=== PATIENT | female | born 1940 | race Caucasian/White ===

== ENCOUNTER 2025-01-07 18:44 | Inpatient (IN) | payer MEDICARE, SELFPAY ==
--- NOTE | ~2025-01-07 | CT_ITS ---
Non-contrast CT scan of the Abdomen and Pelvis Clinical indication: Abdominal pain Technique: 2.5 mm axial scans were obtained through the abdomen and pelvis without intravenous or or al contrast. Dose reduction technique was used on this scan by utilizing automated exposure control a nd iterative reconstruction technique. The dose-length product (DLP) was 337.19 mGy-cm. Findings: Images through the lung bases reveal 5 mm left basilar pulmonary nodule (axial image 29).. Bilateral ureteral stents are in place. No hydronephrosis or ureteral stone. Suspected 3 mm nonobstru cting right renal stone. Probable punctate nonobstructing left renal stone. The liver, spleen, pancreas, gallbladder, and adrenals appear normal. There are atherosclerotic calci fications of the aorta. . There is no evidence of bowel obstruction. Images through the pelvis were performed. There is no evidence of ascites or lymphadenopathy. Urinary bladder unremarkable aside from the stents present. No pelvic mass seen. Status post hysterectomy. Impression: No acute abnormality. Bilateral ureteral stents without hydronephrosis. Probable small nonobstructing renal stones, as abov e. 5 mm left lower lobe pulmonary nodule. According to Fleischner Society criteria, for a low-risk patie nt, no further follow-up required. For a high-risk patient, consider 12 month follow-up CT. Reviewed, dictated and finalized at location . Impression: No acute abnormality. Bilateral ureteral stents without hydronephrosis. Probable small nonobstructing renal stones, as above. 5 mm left lower lobe pulmonary nodule. According to Fleischner Society criteria , for a low-risk patient, no further follow-up required. For a high-risk patien t, consider 12 month follow-up CT.
--- OUTSIDE RECORDS SUMMARY | 2025-01-07 18:47 | XMS_ITS | Encounter Summary ---
Author Organization [facility] Address [address] [place] [address] Phone Care Team Providers Care Batch Room Technician Name Role Phone RoseAnderson sanchez Primary Care Pro vider Zoe Horton MD Unavailable [phone] Yefri Torres MD Primary Care Provider Encounter Details Date Type Department Care Team (Late st Contact Info) Description 12/01/2024 Telephone [facility] [address] [place] [address] Zoe Horton MD [address] [place] [address] [address] Social History Tobacco Use Types Packs/Day Years Used Date Smoking Tobacco: Never Smokeless Tobacco: Never Alcohol Use Standard Drinks/Week Comments Never 0 (1 standard drink = 0.6 oz pur e alcohol) [facility] Utilities Answer Date Recorded In the past 12 months has [employer], gas, oil, or water company threatened to shut off services in your home? Patient declined 12/02/2024 Social Connection and Isolation Panel [NHANES] A nswer Date Recorded In a typical week, how many times do you talk on the phone with family, friends, or neighbors? Patient declined 12/02/2024 How often do you get togethe r with friends or relatives? Patient declined 12/02/2024 How often do you attend spiritism or jehovah's witness serv ices? Patient declined 12/02/2024 Do you belong to any clubs o r organizations such as spiritism groups, unions, fraternal or athletic groups, or school groups? Patient declined 12/02/2024 How often do you attend meet ings of the clubs or organizations you belong to? Patient declined 12/02/2024 Are you , , di vorced, , never , or living with a partner? Patient declined 12/02/2024 AUDIT-C Answer Date Recorded Q1: How often do you have a drink containing alc ohol? Patient declined 12/02/2024 Q2: How many drinks containi ng alcohol do you have on a typical day when you are drinking? Patient declined 12/02/2024 Q3: How often do you have si x or more drinks on one occasion? Patient declined 12/02/2024 Overall Financial Resource Strain (CARDIA) Answe r Date Recorded How hard is it for you to pa y for the very basics like food, housing, medical care, and heating? Patient declined 12/02/2024 [facility] - Occupational Stress Questionnaire Answer Date Recorded Do you feel stress - tense, restless, nervous, or anxious, or unable to sleep at night because your mind is troubled all the time - these days? Patient declined 12/02/2024 Exercise Vital Sign Answer Date Recorde d On average, how many days pe r week do you engage in moderate to strenuous exercise (like a brisk walk)? Patient declined On average, how many minutes do you engage in exercise at this level? Patient declined 12/02/2024 Hunger Vital Sign Answer Date Recorded Within the past 12 months, y ou worried that your food would run out before you got the money to buy more. Patient declined Within the past 12 months, t he food you bought just didn't last and you didn't have money to get more. Patient declined 09/2025 PRAPARE - Transportation Answer Date Re corded In the past 12 months, has l ack of transportation kept you from medical appointments or from getting medications? Patient declined 12/02/2024 In the past 12 months, has l ack of transportation kept you from meetings, work, or from getting things needed for daily living? Patient declined 12/02/2024 Housing Stability Vital Sign Answer Vasquez e Recorded In the last 12 months, was t here a time when you were not able to pay the mortgage or rent on time? Patient declined 12/02/19 25 In the past 12 months, how m any times have you moved where you were living? 1 12/02/2024 At any time in the past [facility] m [facility], were you homeless or living in a jail (including now)? Patient declined 12/02/2024 Sexually Active Control Partners Comments Not Currently Comments No Sex and Gender Information Value Date Recorded Sex Assigned at Not on file Legal Sex Female 6:48 PM CDT Gender Identity Not on file Sexual Orientation Not on file documented as of this encounter Functional Status * Audit-C Score Answer Date of Assessment Author -1 12/02/2024 4:57 PM Dotty Chang RN * Question Answer Date of Assessment Author Q1: How often do you have a drink containing alcohol? Patient declined 12/02/2024 4:57 PM Dotty Chang RN Q2: How many drinks containing alcohol do you have on a typical day when you are drinking? Patient declined 12/02/2024 4:57 PM Alejandro Chang RN Q3: How often do you have six or more drinks on one occasion? Patient declined 12/02/2024 4:57 PM Dotty Chang RN documented as of this encounter Miscellaneous Notes * Telephone Encounter - Stephie Schwab RMA - 12/03/2024 9:18 AM CST Spoke with Lucero's daughter. Lucero is still admitted. She will call and schedule her CT and then callus back to schedule the cysto. ESS DESIGNER * Telephone Encounter - Zoe Horton MD - 12/01/2024 3:[address] in 7-10 days, cysto stent pull in [address] prior to cysto appt ESS DESIGNER documented in this encounter Plan of Treatment Upcoming Encounters Date Type Department Care Team (Latest Contact Info) Description 02/09/2025 12:10 PM CDT Hospital [facility] [address] [place] [address] Zoe Horton MD #[address] [address] 02/09/2025 12:10 PM CDT - 02/09/2025 1:40 PM CDT [facility] [address] [place] [address] Zoe Horton MD #[address] [address] RIGHT EXTRACORPOREAL SHOCKWAVE LITHOTRIPSY, [facility] 02/09 AT 1200 - JS Scheduled Procedures Name Priority Associated Diagnoses Date/Ti me ESWL BILATERAL NEPHROLITHIASIS 02/09/2025 12:10 PM CDT documented as of this encounter Visit Diagnoses Not on filedocumented in this encounter Care Teams Batch Room Technician Relationship Specialty Start Date End Date Anderson Valencia DO [address] [place] [id number] PCP - General Family Medicine 12/31/19 12/24/24 Yefri Torres MD [address] [place] [address] PCP - General Family Medicine 12/25/24 Zoe Horton MD #[address] [address] Consulting Physician Urology 11/03/24 documented as of this encounter
--- OUTSIDE RECORDS SUMMARY | 2025-01-07 18:47 | XMS_ITS | Continuity of Care Document ---
Author Organization [facility] Address [address] [place] [address] Phone Care Team Providers Care Cargo Worker Name Role Phone Troy Garcia MD Unavailable Unavailable Allergies, Adverse Reactions, Alerts Substance Reaction Status Criticality Sulfa (Sulfonamide Antibiotics) Unknown Active Unable to Assess codeine Unknown Active Unable to Asses s Medications Medication Instructions Dosage Effective Dates (start - stop) Status Comments prednisolone acetate 1 % eye drops,suspension 1 gt to operative eye QID 2 days pre-op and 7 days post-op then decrease to BID for 5 wks after surgery. Disp 10 ml - Active ketorolac 0.5 % eye drops instill 1 drop in operative eye QID for 9 days starting 2 days prior to surgery Disp 5ml - Active ofloxacin 0.3 % eye drops instill i gt to operative eye QID x 9 days starting 2 days before surgery Disp 5ml - Active Afrin Sinus (oxymetazoline) 0.05 % nasal spray spray 2 spray by intranasal route 2 times every day in each nostril in the morning and evening 2.00 spray - Active albuterol sulfate HFA 90 mcg/actuation aerosol inhaler inhale 2 puff by inhalation route every 4 - 6 hours as needed - Active aspirin 81 mg chewable tablet chew 1 tablet by oral route every day 81 MG - Active Calcium 600 mg calcium (1,500 mg) tablet take 1 tablet by oral route every day 1 tablet - Active Flovent HFA 220 mcg/actuation aerosol inhaler inhale 1 puff by inhalation route 2 times every day - Active metformin 500 mg tablet take 1 tablet by oral route every day with morning and evening meals 500 MG - Active Procardia XL 60 mg tablet,extended release take 1 tablet by oral route every day 60 MG - Active Toprol XL 25 mg tablet,extended release take 1 tablet by oral route every day 25 MG - Active Trilipix 135 mg capsule,delayed release take 1 capsule by oral route every day 135 MG - Active Vicks VapoInhaler nasal - Active Vitamin B-12 50 mcg tablet inject 1 milliliter by intramuscular route 2 times every month 1 milliliter - Active Vitamin C With [place] Hips 500 mg tablet take 1 tablet by oral route every day 1 tablet - Active Vitamin D3 10 mcg (400 unit) tablet - Active Zetia 10 mg tablet take 1 tablet by oral route every day 10 MG - Active Procedures Procedure Date CATARACT SURG W/IOL, SURGERY IOL MASTER, PROF COMP ONLY CATARACT SURG W/IOL, SURGERY EYE EXAM, NEW PATIENT IOL MASTER FUNDUS PHOTOGRAPHY Post Operative Kit / Medical Supply By P rescription Advance Directives Directive Yes / No Effective Date File Name No Information Encounters Encounter Description Practice Location Reason(s) For Visit Diagnoses Date Provider Providers Copied on Encounter [facility], [facility], [address] [place] [address], [id number] , [place] tel:[phone] [facility] No Information 2 Jose Simmons. [address] [place] [address], [id number] , [place]. tel:[phone] Referring Provider: Troy Stevenson, [address] [place] [address], [id number] . tel:[phone] [facility], [facility], [address] [place] [address], [id number] , [place] tel: [phone] [facility] No Information 2 Jose Simmons. [address] [place] [address], [id number] , . tel: [phone] Referring Provider: Troy Stevenson, [address] [place] [address], [id number] . tel:[phone] [facility], [facility], [address] [place] [address], [id number] , tel:[phone] [facility] No Information 2 Jose Simmons. [address] [place] [address], [id number] , [place]. tel: [phone] Referring Provider: Troy Stevenson, [address] [place] [address], [id number] . tel:[phone] [facility], [address] [place] [address], [id number] , tel: [phone] [facility] blurry vision (chief complaint)OPT OS prior to RML hypertensive retinopathy (chief complaint)hemant rry vision (chief complaint)OPT OS prior to RML hypertensive retinopathy (chief complaint) Hypertensive retinopathy, bilateralCombin ed forms of age-related cataract, bilateralDrusen (degenerative) of macula, bilateralType 2 diabetes mellitus without complicationsLo ng term (current) use of oral hypoglycemic drugsRegular astigmatism, bilateralPresby opiaRefractive amblyopia, left eye Apr-0 2 Jose Simmons. [address] [place] [address], [id number] , [place]. tel: [phone] Referring Provider: Troy Stevenson, [address] [place] [address], [id number] . tel:[phone] [facility], [facility], [address] [place] [address], [id number] , tel:[phone] [facility] No Information 2 Jose Simmons. [address] [place] [address], [id number] , [place]. tel: [phone] Family History Family Member Type Diagnosis Age At Onset Sister Problem hypertension Mother Problem hypertension Sister Problem cataract Problem No family history of Glaucom a Problem No family history of Diabete s mellitus Problem No family history of Macular degeneration Payers Payer name Insurance type Covered green party ID Authoriza tierich(s) Medicare [place] MB [id number] APWU HP Secondary CI [id number] Social History Type Description Quantity Date Captured Comments Alcohol Use Details Unknown Caffeine Use Details Unknown Tobacco Use Status No Information Smoking Status No Information Sex Female Chief Complaint And Reason For Visit No Information Reason For Referral Reason For Referral No Information History Of Present Illness Encounter Date Complaint History Of Prese nt Illness blurry vision The 81 Year old female presents for a referral by Dr. De Guzman for a CAT EVAL. Pt reports blurry vision in the right > left since last exam with Dr. De Guzman. It affects both near and far vision. The patient denies COVID-19 symptoms - temperature normal. No eye meds OU. Pt does have difficulty with sun/glarePt is a Type II Diabetic, treating with oral meds. Pt does not check BS and does not know what her last A1C was. Please send letter to PCP about today's findings. OPTOS prior to RML h ypertensive retinopathy NOTE: OPTOS prior to RML hypertensive retinopathy Functional Status Date Functional Assessmen t No Information Instructions Date Instruction Additional Infor kim Impression/Plan Assessments Type Assessment Date No Information Patient Care Teams Name Effective Dates (start - stop) Status Members No Information
--- OUTSIDE RECORDS SUMMARY | 2025-01-07 18:48 | XMS_ITS | Clinical Summary ---
Author Organization [facility] Address [address] [place] [address] Phone Care Team Providers Care Erector Operator Name Role Phone Zoe Horton MD Unavailable [phone] Yefri Torres MD Primary Care Provider Allergies Active Allergy Reactions Criticality Noted Date Comments Codeine Unknown 10/06/2024 Colesevelam Unknown 10/06/2024 Ezetimibe Unknown 10/06/2024 Ezetimibe-Simvastatin Unknown 10/06/2024 Iodine Unknown 10/06/2024 Meperidine Unknown 10/06/2024 Scopolamine Unknown 10/06/2024 Sulfa Antibiotics Unknown 10/06/2024 Medications aspirin 81 MG Chewable Tablet Take 81 mg by mouth daily. Active Choline Fenofibrate 135 MG CAPSULE DELAYED RELEASE Take 1 Capsule by mouth nightly. Active Diclofenac Sodium (Voltaren) 1 % Gel Apply 4 g 4 times daily. Active metoprolol Succinate (TOPROL-XL) 25 MG TABLET SR 24 HR Take 25 mg by mouth daily. Active NIFEdipine (Procardia XL) 60 MG TABLET SR 24 HR Take 60 mg by mouth daily. Active pravastatin (PRAVACHOL) 20 MG Tablet Take 20 mg by mouth nightly. Active Albuterol Sulfate, sensor, (ProAir Digihaler) 108 (90 Base) MCG/ACT AEROSOL POWDER, BREATH ACTIVATED take 2 Inhalations by inhalation every 4 hours as needed. Active triamterene-hyd rochlorothiazid e (Dyazide) 37.5-25 MG Capsule Take 1 Capsule by mouth every morning. Active metFORMIN (GLUCOPHAGE) 500 MG Tablet Take 0.5 Tablets by mouth daily for 90 days. 45 Tablet 4 01/08/20 25 Active Multiple Vitamins-Minera ls (CENTRUM SILVER ADULT 50+ PO) Take 1 Tablet by mouth daily. Active Bioflavonoid Products (BIOFLEX PO) Take 1 Tablet by mouth daily. Active OMEPRAZOLE PO Take 1 Tablet by mouth daily as needed. Active acetaminophen (TYLENOL) 325 MG Tablet Take 650 mg by mouth every 4 hours as needed for Other (Arthritis). Active HYDROcodone-abhay taminophen (NORCO) 10-325 MG TabletIndicatio ns:Kidney stone Take 1 Tablet by mouth every 6 hours as needed for Moderate or more severe pain. 10 Tablet 5 Active levoFLOXacin (LEVAQUIN) 500 MG Tablet Take 1 Tablet by mouth daily for 7 days. 7 Tablet 5 12/11/19 25 Active Problems Problem Noted Date Diagnosed Date Postoperative fever 12/02/2024 Postoperative nausea and vomiting 12/02/2024 Dehydration 12/02/2024 Hypokalemia 12/02/2024 Kidney stones 12/01/2024 EUGENIE (acute kidney injury) 10/06/2024 Microcytic anemia 10/06/2024 Diabetes mellitus type 2 in nonobese 10/06/2024 Vitamin D deficiency 10/06/2024 Hyperlipidemia 10/06/2024 Hypertension 10/06/2024 Resolved Problems Problem Noted Date Diagnosed Date Resolved Date Sepsis 10/06/2024 10/09/2024 Obstructive pyelonephritis 10/06/2024 1 12/10/2023 Encounters Date Type Department Care Team Description 12/31/2024 Telephone [facility] [place] [address] Zoe Horton MD 12/25/2024 11:30 AM RN ANESTHESIOLOGY Office Visit [facility] [place] [address] Zoe Horton MD UTI symptoms (Primary Dx) Discharge Disposition: Discharged to home or Selfcare 12/23/2024 Travel 12/15/2024 6:14 PM RN ANESTHESIOLOGY - 12/15/2024 11:59 PM RN ANESTHESIOLOGY Hospital Encounter [facility] [address] [place] [address] Zoe Horton MD Discharge Disposition: Discharged to home or Selfcare 12/14/2024 Travel 12/03/2024 Telephone [facility] [place] [address] Nilo Man, BLOW DOWN HELPER, CONTINUOUS LINTER DRIER OPERATOR Erroneous Encounter - Disregard 12/01/2024 1:51 PM RN ANESTHESIOLOGY Anesthesia Event [facility] [address] [place] [address] Rudy Chavarria MD 12/01/2024 1:10 PM RN ANESTHESIOLOGY - 12/01/2024 2:40 PM RN ANESTHESIOLOGY Surgery [facility] [address] [place] [address] Zoe Horton MD BILATERAL URETEROSCOPY AND BASKET STONE EXTRACTION 12/01/2024 10:53 AM RN ANESTHESIOLOGY - 12/04/2024 4:30 PM RN ANESTHESIOLOGY Hospital Encounter [facility] [address] [place] [address] Zoe Horton MD Dianati, Behfar, MD Carmicheal, Crystal Marie, MD EUGENIE (acute kidney injury) (HCC) Discharge Disposition: Discharged/Transferr ed to Rehab Facility (IRF)/Unit 12/01/2024 Telephone [facility] [place] [address] Zoe Horton MD 12/01/2024 Travel 11/17/2024 Travel 11/16/2024 Telephone [facility] [address] [place] [address] Zoe Horton MD 11/11/2024 Results Follow-Up [facility] [address] [place] [address] Zoe Horton MD 11/09/2024 12:19 PM RN ANESTHESIOLOGY - 11/09/2024 11:59 PM RN ANESTHESIOLOGY Hospital En[facility] [address] [place] [address] Provider, Not On File Discharge Disposition: Discharged to home or Selfcare 11/09/2024 11:00 AM RN ANESTHESIOLOGY Clinical Support [facility] [address] [place] [address] Handy Parson Urologandrea UTI symptoms Discharge Disposition: Discharged to home or Selfcare 11/08/2024 Travel 11/05/2024 Telephone [facility] [address] [place] [address] Zoe Horton MD 2024 2:00 PM RN ANESTHESIOLOGY Clinical Support [facility] [address] [place] [address] Handy Parson Urology UTI symptoms (Primary Dx) Discharge Disposition: Discharged to home or Selfcare 11/03/2024 Travel 10/30/2024 1:00 PM RN ANESTHESIOLOGY Office Visit [facility] [address] [place] [address] Zoe Horton MD UTI symptoms (Primary Dx) Discharge Disposition: Discharged to home or Selfcare 10/29/2024 Travel 10/05/2024 10:52 AM RN ANESTHESIOLOGY - 10/09/2024 12:56 PM RN ANESTHESIOLOGY Hospital Encounter [facility] [address] [facility] [place] [address] Bebe Nelson MD Dianati, Behfar, MD Sepsis ([facility]) Discharge Disposition: Discharged/Transferr ed to Rehab Facility (IRF)/Unit from Last 3 Months Immunizations Immunization Administration Dates Next Due Influenza Vaccine,unspecified Formulation 2015,09/30/2014 Influenza, High-dose, Quadrivalent 08/19/2023,,06/26/2020 Influenza, high-dose, trivalent, PF 10/06/2019,1 ,07/02/2017 Pneumococcal Vaccine - 13 Valent 12/23/2017 Pneumococcal Vaccine Adult - 23 Valent 9 RSV, Recombinant, Protein Dee bunit Rsvpref, Adjuvant Recon (Arexvy) 09/04/2023 TDAP Vaccine 04/20/2021 Family History Medical History Relation Name Comments No Known Problems Father Heart Attack Mother Relation Name Status Comments Father Mother Social History Tobacco Use Types Packs/Day Years Used Date Smoking Tobacco: Never Smokeless Tobacco: Never Tobacco Cessation:Counseling Given: Not Answered Alcohol Use Standard Drinks/Week Comments Never 0 (1 standard drink = 0.6 oz pur e alcohol) [facility] Utilities Answer Date Recorded In the past 12 months has e electric, gas, oil, or water [employer] threatened to shut off services in your home? Patient declined 12/02/2024 Social Connection and Isolation Panel [NHANES] A nswer Date Recorded In a typical week, how many times do you talk on the phone with family, friends, or neighbors? Patient declined 12/02/2024 How often do you get togethe r with friends or relatives? Patient declined 12/02/2024 How often do you attend jainism or latter day serv ices? Patient declined 12/02/2024 Do you belong to any clubs o r organizations such as jainism groups, unions, fraternal or athletic groups, or [...] medical care, and heating? Patient declined 12/02/2024 [facility] [...] any time in the past 12 m [facility], were you homeless or living in a alf (including now)? Patient declined 12/02/2024 Sexually Active Control Partners Comments Not Currently Comments No Sex and Gender Information Value Date Recorded Sex Assigned at Not on file Legal Sex Female 6:48 PM CDT Gender Identity Not on file Sexual Orientation Not on file Last Filed Vital Signs Vital Sign Reading Time Taken Comments Blood Pressure 150/65 12/25/2024 11:23 AM RN ANESTHESIOLOGY Pulse 75 12/25/2024 11:23 AM RN ANESTHESIOLOGY Temperature 36.3 C (97.3 F) 12/04/2024 3:43 PM RN ANESTHESIOLOGY Respiratory Rate 16 12/25/2024 11:23 AM RN ANESTHESIOLOGY Oxygen Saturation 96% 12/25/2024 11:23 AM RN ANESTHESIOLOGY Inhaled Oxygen Concentration - - Weight 57.4 kg (126 lb 9.6 oz) 12/25/2024 11:23 AM RN ANESTHESIOLOGY Height 160 cm (5' 3 ) 12/25/2024 11:23 AM RN ANESTHESIOLOGY Body Mass Index 22.43 12/25/2024 11:23 AM RN ANESTHESIOLOGY Plan of Treatment Upcoming Encounters Date Type Department Care Team (Latest Contact Info) Description 02/09/2025 12:10 PM CDT Hospital [facility]counter [facility] [address] [place] [address] Zoe Horton MD #[address] [address] 02/09/2025 12:10 PM CDT - 02/09/2025 1:40 PM CDT Surgery [facility] [address] [place] [address] Zoe Horton MD #[address] [address] RIGHT EXTRACORPOREAL SHOCKWAVE LITHOTRIPSY, ALFREDA/MIDWEST STONE CONF FOR 02/09 AT 1200 - JS Scheduled Procedures Name Priority Associated Diagnoses Date/Ti me ESWL BILATERAL NEPHROLITHIASIS 02/09/2025 12:10 PM CDT Health Maintenance Due Date Last Done Comments Diabetes: Eye Exam 1940 Diabetes: Foot Exam 1940 Hepatitis C Virus (HCV) Screening 1940 Zoster Immunization (1 of 2) 1988 DEXA Bone Density 06/01/2023 06/01/2021 Influenza Immunization (#1) 06/21/202407/23, 08/10/2022, 06/26/2020, Additional history exists SARS-COV-2 Immunization ( season) 2024 07/25/2023, 08/28/2022, 09/06/2021, Additional history exists Diabetes: Hemoglobin A1c 04/08/2025 10/08/2024, 05/21 Diabetes: Nephropathy Screening 12/01/2025 12/01/2024, 10/06/2024 Td Immunization Every 10 Years (Adults With 1 Tdap) 04/20/2031 04/20/2021 Pneumococcal Immunization (50+ years) Completed 01/21/2019, 12/23/2017 Pneumococcal Immunization Combined Discontinued 01/21/2019, 12/23/2017 DTaP/Tdap/Td Immunization Discontinued 04/20/2021 TdaP Immunization Discontinued 04/20/2021 Respiratory Syncytial Virus (RSV) Immunization (Adult) Completed 09/04/2023 Hepatitis B Immunization Aged Out No longer eligible based on patient's age to complete this topic Meningococcal Immunization (ACWY) Aged Out No longer eligible based on patient's age to complete this topic Rotavirus Immunization Aged Out No lo nger eligible based on patient's age to complete this topic Medical Devices Implanted Type Area Water Inspector Device Identifier Shelf Expiration Date Model / Serial / Lot Stent Ureteral 6fr 2.1fr 24cm 2 Pigtail Curve 2 Durometer Taper Tip Loprfl Graduated Polaris Ultra - [id number] Implanted:Qty : 1 on 12/01/2024 by Zoe Horton MD at [facility] IMPLANT Right: Ureter [employer]a 07/14/2027 [id number] 0 / [id number] 0 / [id number] Description:STRINGS OFF Stent Ureteral 6fr 2.1fr 24cm 2 Pigtail Curve 2 Durometer Taper Tip Loprfl Graduated Polaris Ultra - [id number] Implanted:Qty : 1 on 12/01/2024 by Zoe Horton MD at [facility] IMPLANT Left: Ureter [employer] 03/11/2027 [id number] 0 / [id number] 0 / [id number] Explanted Type Area Water Inspector Device Identifier Shelf Expiration Date Model / Serial / Lot Stent Ureteral 6fr 2.1fr 26cm 2 Pigtail Curve 2 Durometer Taper Tip Loprfl Graduated Polaris Ultra - [id number] Implanted:Qty : 1 on 10/06/2024 by Zoe Horton MD at [facility] Explanted:Qty : 1 on 12/01/2024 by Zoe Horton MD at [facility] IMPLANT Right: Ureter [employer] 03/11/2027 [id number] 0 / [id number] 0 / [id number] Description:STRINGS OFF Procedures Procedure Name Priority Date/Time Associated Diagnosis Comments CULTURE, URINE Routine 12/25/2024 11:49 AM RN ANESTHESIOLOGY UTI symptoms CT RENAL STONE STUDY (ABDOMEN AND PELVIS W/O CONTRAST) Routine 12/15/2024 6:28 PM RN ANESTHESIOLOGY Kidney stone POCT GLUCOSE Routine 12/04/2024 1:04 PM RN ANESTHESIOLOGY POCT GLUCOSE Routine 12/04/2024 10:11 AM RN ANESTHESIOLOGY CBC WITH AUTO DIFFERENTIAL Routine 12/04/2024 5:51 AM RN ANESTHESIOLOGY COMPLETE BLOOD COUNT (CBC) WITH DIFF Routine 12/04/2024 5:51 AM RN ANESTHESIOLOGY BASIC METABOLIC PANEL W/ CALCIUM TOTAL Routine 12/04/2024 5:51 AM RN ANESTHESIOLOGY POCT GLUCOSE Routine 12/03/2024 7:59 PM RN ANESTHESIOLOGY POCT GLUCOSE Routine 12/03/2024 3:41 PM RN ANESTHESIOLOGY POCT GLUCOSE Routine 12/03/2024 11:33 AM RN ANESTHESIOLOGY POCT GLUCOSE Routine 12/03/2024 6:49 AM RN ANESTHESIOLOGY CBC WITH AUTO DIFFERENTIAL Routine 12/03/2024 6:05 AM RN ANESTHESIOLOGY COMPLETE BLOOD COUNT (CBC) WITH DIFF Routine 12/03/2024 6:05 AM RN ANESTHESIOLOGY BASIC METABOLIC PANEL W/ CALCIUM TOTAL Routine 12/03/2024 6:05 AM RN ANESTHESIOLOGY RHYTHM STRIP 12/03/2024 12:00 AM RN ANESTHESIOLOGY RHYTHM STRIP 12/03/2024 12:00 AM RN ANESTHESIOLOGY POCT GLUCOSE Routine 12/02/2024 8:07 PM RN ANESTHESIOLOGY POCT GLUCOSE Routine 12/02/2024 4:42 PM RN ANESTHESIOLOGY URINALYSIS REFLEX IF INDICATED BY ABNORMAL RESULTS Routine 12/02/2024 3:00 PM RN ANESTHESIOLOGY CULTURE, URINE Routine 12/02/2024 3:00 PM RN ANESTHESIOLOGY POCT GLUCOSE Routine 12/02/2024 11:07 AM RN ANESTHESIOLOGY POCT GLUCOSE Routine 12/02/2024 7:41 AM RN ANESTHESIOLOGY CBC WITH AUTO DIFFERENTIAL Routine 12/02/2024 5:18 AM RN ANESTHESIOLOGY COMPLETE BLOOD COUNT (CBC) WITH DIFF Routine 12/02/2024 5:18 AM RN ANESTHESIOLOGY BASIC METABOLIC PANEL W/ CALCIUM TOTAL Routine 12/02/2024 5:18 AM RN ANESTHESIOLOGY XR CHEST SINGLE VIEW PORTABLE Routine 12/02/2024 2:47 AM RN ANESTHESIOLOGY POCT GLUCOSE Routine 12/02/2024 1:11 AM RN ANESTHESIOLOGY RHYTHM STRIP 12/02/2024 12:00 AM RN ANESTHESIOLOGY RHYTHM STRIP 12/02/2024 12:00 AM RN ANESTHESIOLOGY RHYTHM STRIP 12/02/2024 12:00 AM RN ANESTHESIOLOGY MANUAL DIFFERENTIAL Routine 12/01/2024 9 :37 PM RN ANESTHESIOLOGY CBC WITH AUTO DIFFERENTIAL Routine 12/01/2024 9:37 PM RN ANESTHESIOLOGY CMP (COMPREHENSIVE METABOLIC PANEL) Routine 12/01/2024 9:37 PM RN ANESTHESIOLOGY COMPLETE BLOOD COUNT (CBC) WITH DIFF Routine 12/01/2024 9:37 PM RN ANESTHESIOLOGY POCT GLUCOSE Routine 12/01/2024 8:52 PM RN ANESTHESIOLOGY POCT GLUCOSE Routine 12/01/2024 5:57 PM RN ANESTHESIOLOGY XR RETROGRADE PYELOGRAM Routine 12/01/2024 3:03 PM RN ANESTHESIOLOGY POCT GLUCOSE Routine 12/01/2024 3:00 PM RN ANESTHESIOLOGY PATHOLOGY SURGICAL Routine 12/01/2024 2: 10 PM RN ANESTHESIOLOGY LMA Routine 12/01/2024 2:05 PM RN ANESTHESIOLOGY CYSTOSCOPY,INSERT URETERAL STENT 12/01/2024 1:31 PM RN ANESTHESIOLOGY BILATERAL NEPHROLITHIASIS Special Needs Allergy: Many- see EPIC Hx: Diabetes, HTN 5' 3 126# CYSTOSCOPY,REMV CALCULUS,SIMPLE 12/01/2024 1:31 PM RN ANESTHESIOLOGY BILATERAL NEPHROLITHIASIS Special Needs Allergy: Many- see EPIC Hx: Diabetes, HTN 5' 3 126# DIAG-RETROGRADE PYELOGRAM 12/01/2024 1:31 PM RN ANESTHESIOLOGY BILATERAL NEPHROLITHIASIS Special Needs Allergy: Many- see EPIC Hx: Diabetes, HTN 5' 3 126# CYSTOURETHROSCOPY,U RETER CATHETER 12/01/2024 1:31 PM RN ANESTHESIOLOGY BILATERAL NEPHROLITHIASIS Special Needs Allergy: Many- see EPIC Hx: Diabetes, HTN 5' 3 126# CYSTO/URETERO W/LITHOTRIPSY 12/01/2024 1:31 PM RN ANESTHESIOLOGY BILATERAL NEPHROLITHIASIS Special Needs Allergy: Many- see EPIC Hx: Diabetes, HTN 5' 3 126# CYSTOSCOPY,INSERT URETERAL STENT 12/01/2024 1:31 PM RN ANESTHESIOLOGY BILATERAL NEPHROLITHIASIS Special Needs Allergy: Many- see EPIC Hx: Diabetes, HTN 5' 3 126# CYSTOSCOPY,INSERT URETHRAL STENT 12/01/2024 1:31 PM RN ANESTHESIOLOGY BILATERAL NEPHROLITHIASIS Special Needs Allergy: Many- see EPIC Hx: Diabetes, HTN 5' 3 126# CYSTO/URETERO/PYELO SCOPY, DX 12/01/2024 1:31 PM RN ANESTHESIOLOGY BILATERAL NEPHROLITHIASIS Special Needs Allergy: Many- see EPIC Hx: Diabetes, HTN 5' 3 126# CYSTOURETHROSCOPY,U RETER CATHETER 12/01/2024 1:31 PM RN ANESTHESIOLOGY BILATERAL NEPHROLITHIASIS Special Needs Allergy: Many- see EPIC Hx: Diabetes, HTN 5' 3 126# POCT GLUCOSE Routine 12/01/2024 11:[address] REFERENCE IMAGES FOR IMAGE IMPORT Routine 11/09/2024 12:19 PM RN ANESTHESIOLOGY CULTURE, URINE Routine 11/09/2024 10:49 AM RN ANESTHESIOLOGY UTI symptoms CULTURE, URINE Routine 2024 2:13 PM RN ANESTHESIOLOGY UTI symptoms CULTURE, URINE Routine 10/30/2024 1:10 PM RN ANESTHESIOLOGY UTI symptoms CBC WITH AUTO DIFFERENTIAL Routine 10/09/2024 5:41 AM RN ANESTHESIOLOGY BASIC METABOLIC PANEL W/ CALCIUM TOTAL Routine 10/09/2024 5:41 AM RN ANESTHESIOLOGY COMPLETE BLOOD COUNT (CBC) WITH DIFF Routine 10/09/2024 5:41 AM RN ANESTHESIOLOGY HEMOGLOBIN A1C W/ ESTIMATED GLUCOSE Routine 10/08/2024 5:55 AM RN ANESTHESIOLOGY from Last 3 Months or Most Recently Relevant to Health Maintenance Results * CULTURE, URINE (12/25/2024 11:49 AM RN ANESTHESIOLOGY) Only the most recent of5 resultswithin the time period is included. CULTURE RESULTS No growth final 12/26/2024 9:15 PM RN ANESTHESIOLOGY [facility] Culture (Straight Catheter) Non-Phlebotomy Collection / Unknown 12/25/2024 11:49 AM RN ANESTHESIOLOGY 12/25/2024 11:49 AM RN ANESTHESIOLOGY us Zoe Lancaster MD MICROBIOLOGY - GENERAL ORDERAB LES Final Result [facility] [address] [place] [address], [place] * CT RENAL STONE STUDY (ABDOMEN AND PELVIS W/O CONTRAST) (12/15/2024 6:28 PM RN ANESTHESIOLOGY) Anatomical Region Laterality Modality Abdomen N/A Computed Tomogra phy 12/20/2024 8:40 AM RN ANESTHESIOLOGY Impressions 12/20/2024 8:43 AM RN ANESTHESIOLOGY IMPRESSION: Bilateral double-J ureteral stents in place. No hydronephrosis. 5 mm stone adjacent to the proximal aspect of the right ureteral stent. No other stone along the course of the stent. Nonobstructing 2 mm calculus at the lower pole of the right kidney. Urinary bladder decompressed, accentuating wall thickness. Increased stool burden within the colon. Diverticulosis. Pulmonary nodules within the lung bases, stable compared to recent examination on 10/05/2024. CT of the chest without contrast is recommended for further evaluation. Per Fleischner Society Guidelines, follow-up CT of the complete chest after an appropriate interval (3 to 12 months depending on clinical risk) to confirm stability and to evaluate additional findings. Additional findings as above. Narrative 12/20/2024 8:43 AM RN ANESTHESIOLOGY EXAM DESCRIPTION: CT RENAL STONE STUDY (ABDOMEN AND PELVIS W/O CONTRAST) REASON FOR STUDY: follow up bilateral kidney stones x 2 months[address] TECHNIQUE: CT scan of the abdomen and pelvis performed without intravenous and without oral contrast using helical scanning technique. Reconstructed coronal and sagittal MPR images reviewed. All images stored on PACS. Automated exposure control was used as a dose optimization technique for this examination. COMPARISON: Retrograde pyelogram 12/01/2024 and 10/06/2024. CT 10/05/2024 FINDINGS: The sensitivity for detection of visceral lesions is diminished without the use of intravenous contrast. LOWER CHEST: There is no consolidation within either lung base. There is a 6 mm nodule within the left lower lobe on image number 2 of the study, stable compared to recent examination on 10/05/2024. 3 mm nodule in the posterolateral right lower lobe on image 12 is also stable. Atherosclerotic calcification of the distal thoracic aorta. Coronary artery calcification. No pleural or pericardial effusion. LIVER: The liver is normal in size. There is no discrete hepatic mass within the limitations of this noncontrast study. GALLBLADDER: Gallbladder is mildly distended, similar to the prior study. No calcified stones or inflammatory process. BILE DUCTS: No intrahepatic or extrahepatic ductal dilatation. SPLEEN: Normal size. No focal lesions. PANCREAS: No peripancreatic inflammatory process or fluid collection. Evaluation for pancreatic mass limited on noncontrast imaging. ADRENALS: Unremarkable. KIDNEYS/URINARY TRACT: Right kidney: There is a ureteral stent in place. Proximal aspect is coiled within the renal pelvis. There is no hydronephrosis. There is mild urothelial thickening of the renal pelvis, with slight peripelvic stranding. There is a nonobstructing 2 mm calculus at the lower pole of the right kidney. There is a stone adjacent to the proximal aspect of the right ureteral stent as visualized on axial image number 72 and coronal image number 47, measuring 5 mm in craniocaudal on coronal series. There is no other appreciable calculus along the right ureteral stent. Left kidney: There is a double-J ureteral stent. The proximal aspect is coiled within the collecting system of the upper/interpolar aspect of the left kidney. There is no hydronephrosis. No definite stone along the path of the left ureteral stent. The urinary bladder is decompressed, accentuating wall thickness. Distal aspects of the ureteral stents are coiled within the bladder lumen GI: There is decompression of the stomach. Small bowel loops are normal in caliber. No wall thickening or evidence of obstruction. The appendix is normal. There is increased stool burden demonstrated within the colon. There is diverticulosis, without diverticulitis. PERITONEUM: There is no free intraperitoneal air. There is no free fluid. There is no mesenteric adenopathy. RETROPERITONEUM: There are a few scattered subcentimeter short axis retroperitoneal nodes. REPRODUCTIVE: No significant abnormality. VASCULATURE: The abdominal aorta is atherosclerotic, without aneurysm MUSCULOSKELETAL: There is grade 1 anterolisthesis at L3-4, L4-5 and to a lesser degree L5-S1. 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 OTHER: No other abnormality. THIS IS AN ELECTRONICALLY VERIFIED FINAL REPORT 12/20/2024 8:40 AM - Electronically signed by Debi Perez M.D. TW: TW Report ID: [id number] Reading Location: [id number] Procedure Note Debi Perez MD - 12/20/2024 EXAM DESCRIPTION: CT RENAL STONE STUDY (ABDOMEN AND PELVIS W/O CONTRAST) REASON FOR STUDY: follow up bilateral kidney stones x 2 months[address] TECHNIQUE: CT scan of the abdomen and pelvis performed without intravenous and without oral contrast using helical scanning technique. Reconstructed coronal and sagittal MPR images reviewed. All images stored on PACS. Automated exposure control was used as a dose optimization technique for this examination. COMPARISON: Retrograde pyelogram 12/01/2024 and 10/06/2024. CT 10/05/2024 FINDINGS: The sensitivity for detection of visceral lesions is diminished without the use of intravenous contrast. LOWER CHEST: There is no consolidation within either lung base. There is a 6 mm nodule within the left lower lobe on image number 2 of the study, stable compared to recent examination on 10/05/2024. 3 mm nodule in the posterolateral right lower lobe on image 12 is also stable. Atherosclerotic calcification of the distal thoracic aorta. Coronary artery calcification. No pleural or pericardial effusion. LIVER: The liver is normal in size. There is no discrete hepatic mass within the limitations of this noncontrast study. GALLBLADDER: Gallbladder is mildly distended, similar to the prior study. No calcified stones or inflammatory process. BILE DUCTS: No intrahepatic or extrahepatic ductal dilatation. SPLEEN: Normal size. No focal lesions. PANCREAS: No peripancreatic inflammatory process or fluid collection. Evaluation for pancreatic mass limited on noncontrast imaging. ADRENALS: Unremarkable. KIDNEYS/URINARY TRACT: Right kidney: There is a ureteral stent in place. Proximal aspect is coiled within the renal pelvis. There is no hydronephrosis. There is mild urothelial thickening of the renal pelvis, with slight peripelvic stranding. There is a nonobstructing 2 mm calculus at the lower pole of the right kidney. There is a stone adjacent to the proximal aspect of the right ureteral stent as visualized on axial image number 72 and coronal image number 47, measuring 5 mm in craniocaudal on coronal series. There is no other appreciable calculus along the right ureteral stent. Left kidney: There is a double-J ureteral stent. The proximal aspect is coiled within the collecting system of the upper/interpolar aspect of the left kidney. There is no hydronephrosis. No definite stone along the path of the left ureteral stent. The urinary bladder is decompressed, accentuating wall thickness. Distal aspects of the ureteral stents are coiled within the bladder lumen GI: There is decompression of the stomach. Small bowel loops are normal in caliber. No wall thickening or evidence of obstruction. The appendix is normal. There is increased stool burden demonstrated within the colon. There is diverticulosis, without diverticulitis. PERITONEUM: There is no free intraperitoneal air. There is no free fluid. There is no mesenteric adenopathy. RETROPERITONEUM: There are a few scattered subcentimeter short axis retroperitoneal nodes. REPRODUCTIVE: No significant abnormality. VASCULATURE: The abdominal aorta is atherosclerotic, without aneurysm MUSCULOSKELETAL: There is grade 1 anterolisthesis at L3-4, L4-5 and to a lesser degree L5-S1. 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 OTHER: No other abnormality. THIS IS AN ELECTRONICALLY VERIFIED FINAL REPORT 12/20/2024 8:40 AM - Electronically signed by Debi Perez M.D. TW: TEDDY Report ID: [id number] Reading Location: [id number] IMPRESSION: Bilateral double-J ureteral stents in place. No hydronephrosis. 5 mm stone adjacent to the proximal aspect of the right ureteral stent. No other stone along the course of the stent. Nonobstructing 2 mm calculus at the lower pole of the right kidney. Urinary bladder decompressed, accentuating wall thickness. Increased stool burden within the colon. Diverticulosis. Pulmonary nodules within the lung bases, stable compared to recent examination on 10/05/2024. CT of the chest without contrast is recommended for further evaluation. Per Fleischner Society Guidelines, follow-up CT of the complete chest after an appropriate interval (3 to 12 months depending on clinical risk) to confirm stability and to evaluate additional findings. Additional findings as above. [facility] Joey Horton MD [facility] [place] ORDERABLES Final Result * (ABNORMAL) POCT Glucose (12/04/2024 1:04 PM RN ANESTHESIOLOGY) Only the most recent of15 resultswithin the time period is included. Pathologist [facility] GLUCOSE,BEDSID E POCT 135(H) 70 - 99 mg/dL 12/04/2024 1:11 PM RN ANESTHESIOLOGY [facility] Blood 12/04/2024 1:04 PM RN ANESTHESIOLOGY 12/04/2024 1:11 PM RN ANESTHESIOLOGY us None Provider POINT OF CARE TESTING Final Resu lt [facility] [address] [place] [address] * (ABNORMAL) CBC with Auto Differential (12/04/2024 5:51 AM RN ANESTHESIOLOGY) Only the most recent of5 resultswithin the time period is included. [facility] WBC 22.88(H) 4.00 - 12.00 10(3)/mcL 12/04/2024 6:24 AM RN ANESTHESIOLOGY [facility] RBC 3.54(L) 3.80 - 5.30 10(6)/mcL 12/04/2024 6:24 AM [facility] HEMOGLOBIN (HGB) 10.8(L) 12.0 - 15.8 g/dL 12/04/2024 6:24 AM [facility] HEMATOCRIT (HCT) 33.8(L) 36.0 - 47.0 % 12/04/2024 6:24 AM RN ANESTHESIOLOGY [facility] MCV 95.5 82.0 - 96.0 fL 12/04/2024 6:24 AM [facility] MCH 30.5 26.0 - 34.0 pg 12/04/2024 6:24 AM [facility] MCHC 32.0 31.0 - 36.0 g/dL 12/04/2024 6:24 AM [facility] PLATELET COUNT 191 140 - 440 10(3)/mcL 12/04/2024 6:24 AM [facility] RDW 16.0(H) 11.8 - 15.5 % 12/04/2024 6:24 AM [facility] MPV 11.2 9.7 - 12.4 fL 12/04/2024 6:24 AM [facility] NEUTROPHILS 79.6(H) 47.0 - 73.0 % 12/04/2024 6:24 AM [facility] LYMPHOCYTES 11.1(L) 18.0 - 42.0 % 12/04/2024 6:24 AM [facility] MONOCYTES 6.5 4.0 - 12.0 % 12/04/2024 6:24 AM [facility] EOSINOPHILS 2.3 0.0 - 5.0 % 12/04/2024 6:24 AM [facility] BASOPHILS 0.5 0.0 - 1.0 % 12/04/2024 6:24 AM [facility] ABSOLUTE NEUTROPHILS 18.21(H) 1.60 - 7.70 10(3)/[facility] 12/04/2024 6:24 AM [facility] ABSOLUTE LYMPHOCYTES 2.55 1.30 - 3.20 10(3)/[facility] 12/04/2024 6:24 AM [facility] ABSOLUTE MONOCYTES 1.48(H) 0.20 - 1.00 10(3)/[facility] 12/04/2024 6:24 AM [facility] ABSOLUTE EOSINOPHIL 0.53(H) 0.00 - 0.40 10(3)/[facility] 12/04/2024 6:24 AM [facility] ABSOLUTE BASOPHILS 0.11(H) 0.00 - 0.10 10(3)/[facility] 12/04/2024 6:24 AM [facility] NRBC PER 100 WBC 0 12/04/19 6:24 AM [facility] Blood Venipuncture / Unknown 12/04/2024 5:51 AM [facility] 12/04/2024 6:20 AM RN ANESTHESIOLOGY us Breann Nice BLOW DOWN HELPER, CONTINUOUS LINTER DRIER OPERATOR HEMATOLOGY ORDERABLES Final Result [facility] [address] [place] [address] * (ABNORMAL) BMP with Ca, Total (12/04/2024 5:51 AM RN ANESTHESIOLOGY) Only the most recent of4 resultswithin the time period is included. SODIUM 144 136 - 145 mmol/L 12/04/2024 6:38 AM RN ANESTHESIOLOGY [facility] POTASSIUM 3.6 3.5 - 5.1 mmol/L 12/04/2024 6:38 AM [facility] CHLORIDE 115(H) 98 - 107 mmol/L 12/04/2024 6:38 AM [facility] CO2, VENOUS 22 22 - 30 mmol/L 12/04/2024 6:38 AM [facility] ANION GAP 10.6 <18.0 mmol/L 12/04/2024 6:38 AM RN ANESTHESIOLOGY [facility] GLUCOSE 134(H) 70 - 99 mg/dL 12/04/2024 6:38 AM [facility] BUN 17 10 - 20 mg/dL 12/04/2024 6:38 AM [facility] CREATININE, BLOOD 0.82 0.60 - 1.00 mg/dL 12/04/2024 6:38 AM [facility] BUN/CREATININE RATIO 21(H) 12 - 20 ratio 12/04/2024 6:38 AM [facility] CALCIUM 8.6(L) 8.7 - 10.5 mg/dL 12/04/2024 6:38 AM [facility] GFR, ESTIMATED >60 >=60 12/04/2024 6:38 AM [facility] Comment: Creatinine Clearance is the preferred criteria for selecting drug dose adjustments in renally impaired patients. The GFR is provided as additional pertinent clinical information. GFR is reported in mL/min/1.73 sq m. Calculation based on the Chronic Kidney Disease Epidemiology Collaboration (CKD- EPI) equation refit without adjustment for race. GFR, EST. >60 >=60 025 6:38 AM RN ANESTHESIOLOGY [facility] GFR, EST. NONAFRICAN >60 >=60 12/04/2024 6:38 AM RN ANESTHESIOLOGY [facility] Blood Venipuncture / Unknown 12/04/2024 5:51 AM RN ANESTHESIOLOGY 12/04/2024 6:20 AM RN ANESTHESIOLOGY us Breann Nice APRN, CNP CHEMISTRY ORDERABLES Final Result [facility] [address] [place] [address] * RHYTHM STRIP (12/03/2024 12:00 AM RN ANESTHESIOLOGY) Only the most recent of5 resultswithin the time period is included. 12/03/2024 us Provider Scan IMG ECG ORDERABLES Final Result RESULTING AGENCY * (ABNORMAL) URINALYSIS REFLEX IF INDICATED BY ABNORMAL RESULTS (12/02/2024 3:00 PM RN ANESTHESIOLOGY) SPECIFIC GRAVITY 1.015 1.003 - 1.030 12/02/2024 3:25 PM RN ANESTHESIOLOGY [facility] URINE PH 5.0 5.0 - 9.0 12/02/2024 3:25 PM RN ANESTHESIOLOGY [facility] WBC ESTERASE 500 /uL(A) Negative 12/02/2024 3:25 PM RN ANESTHESIOLOGY [facility] NITRITE Negative Negative 12/02/2024 3:25 PM RN ANESTHESIOLOGY [facility] PROTEIN, RANDOM URINE 500 mg/dL(A) Negative 12/02/2024 3:25 PM RN ANESTHESIOLOGY [facility] URINE GLUCOSE, QUAL Negative Negative 12/02/2024 3:25 PM RN ANESTHESIOLOGY [facility] URINE KETONES 5 mg/dL(A) Negative 12/02/2024 3:25 PM RN ANESTHESIOLOGY [facility] UROBILINOGEN Normal Normal mg/dL 12/02/2024 3:25 PM RN ANESTHESIOLOGY [facility] URINE BLOOD 250 /uL(A) Negative alma delia/ul 12/02/2024 3:25 PM RN ANESTHESIOLOGY [facility] URINALYSIS COLOR Brown 12/02/2024 3:25 PM RN ANESTHESIOLOGY [facility] URINALYSIS CLARITY Very Cloudy 12/02/2024 3:25 PM RN ANESTHESIOLOGY [facility] WBC (Urine) Packed(A) Negative, 0-5 /hpf 12/02/2024 3:25 PM RN ANESTHESIOLOGY [facility] URINE RBC'S Packed(A) Negative, 0-2 /hpf 12/02/2024 3:25 PM RN ANESTHESIOLOGY [facility] EPITHELIAL CELLS Occasional /lpf 12/02/2024 3:25 PM RN ANESTHESIOLOGY [facility] BACTERIA, URINE Few(A) Negative /hpf 12/02/2024 3:25 PM RN ANESTHESIOLOGY [facility] Urine URINE SPECIMEN COLLECTION, CLEAN CATCH / Unknown Non-Phlebotomy Collection / Unknown 12/02/2024 3:00 PM RN ANESTHESIOLOGY 12/02/2024 3:03 PM RN ANESTHESIOLOGY us Breann Nice BLOW DOWN HELPER, CONTINUOUS LINTER DRIER OPERATOR URINE ORDERABLES Capri l Result [facility] [address] [place] [address] * XR CHEST SINGLE VIEW PORTABLE (12/02/2024 2:47 AM RN ANESTHESIOLOGY) Anatomical Region Laterality Modality Chest N/A Computed Radiogr aphy 12/02/2024 3:02 AM RN ANESTHESIOLOGY Impressions 12/02/2024 3:04 AM RN ANESTHESIOLOGY IMPRESSION: No acute abnormality identified within limits of low inspiratory volume portable technique. Narrative 12/02/2024 3:04 AM RN ANESTHESIOLOGY EXAM DESCRIPTION: XR CHEST SINGLE VIEW PORTABLE REASON FOR STUDY: Post op fever and vomiting TECHNIQUE: Portable upright AP view of the chest. COMPARISON: None FINDINGS: LUNGS AND PLEURA: No focal opacity, large effusion, or pneumothorax identified. HEART/MEDIASTINUM: Trachea midline. Cardiac silhouette normal in size. Mediastinal contours appear normal. BONES: Moderate shoulder arthritis. CHEST WALL: Unremarkable. UPPER ABDOMEN: Unremarkable. THIS IS AN ELECTRONICALLY VERIFIED FINAL REPORT 12/02/2024 3:02 AM - Electronically signed by Scotty Perry M.D. AR: JENNIFER Report ID: [id number] Reading Location: [id number] Procedure Note Scotty Perry MD - 12/02/2024 EXAM DESCRIPTION: XR CHEST SINGLE VIEW PORTABLE REASON FOR STUDY: Post op fever and vomiting TECHNIQUE: Portable upright AP view of the chest. COMPARISON: None FINDINGS: LUNGS AND PLEURA: No focal opacity, large effusion, or pneumothorax identified. HEART/MEDIASTINUM: Trachea midline. Cardiac silhouette normal in size. Mediastinal contours appear normal. BONES: Moderate shoulder arthritis. CHEST WALL: Unremarkable. UPPER ABDOMEN: Unremarkable. THIS IS AN ELECTRONICALLY VERIFIED FINAL REPORT 12/02/2024 3:02 AM - Electronically signed by Scotty Perry M.D. AR: JENNIFER Report ID: [id number] Reading Location: [id number] IMPRESSION: No acute abnormality identified within limits of low inspiratory volume portable technique. Breann Nice BLOW DOWN HELPER, CONTINUOUS LINTER DRIER OPERATOR IMG DIAGNOSTIC ORDERA BLES Final Result * (ABNORMAL) Manual Differential (12/01/2024 9:37 PM RN ANESTHESIOLOGY) BANDS % 13.0 % 12/01/2024 10:19 PM RN ANESTHESIOLOGY [facility] NEUTROPHILS % 80.0(H) 47.0 - 73.0 % 12/01/2024 10:19 PM RN ANESTHESIOLOGY [facility] LYMPHOCYTES % 5.0(L) 18.0 - 42.0 % 12/01/2024 10:19 PM RN ANESTHESIOLOGY [facility] MONOCYTES % 2.0(L) 4.0 - 12.0 % 12/01/2024 10:19 PM RN ANESTHESIOLOGY [facility] NEUTROPHILS ABSOLUTE 6.26 1.60 - 7.70 10(3)/[facility] 12/01/2024 10:19 PM RN ANESTHESIOLOGY [facility] LYMPHOCYTES ABSOLUTE 0.34(L) 1.30 - 3.20 10(3)/mcL 12/01/2024 10:19 PM RN ANESTHESIOLOGY [facility] MONOCYTES ABSOLUTE 0.13(L) 0.20 - 1.00 10(3)/[facility] 12/01/2024 10:19 PM RN ANESTHESIOLOGY [facility] REACTIVE LYMPHOCYTES 4 12/01/2024 10:19 PM RN ANESTHESIOLOGY [facility] WBC MORPH STATUS Normal 12/01/19 10:19 PM RN ANESTHESIOLOGY [facility] RBC MORPH STATUS Normal 12/01/19 10:19 PM RN ANESTHESIOLOGY [facility] PLATELET STATUS Normal 10:19 PM [facility] Blood Venipuncture / Unknown 12/01/2024 9:37 PM RN ANESTHESIOLOGY 12/01/2024 9:50 PM RN ANESTHESIOLOGY us Breann Nice BLOW DOWN HELPER, CONTINUOUS LINTER DRIER OPERATOR HEMATOLOGY ORDERABLES Final Result [facility] [address] [place] [address] * (ABNORMAL) CMP (Comprehensive Metabolic Panel) (12/01/2024 9:37 PM RN ANESTHESIOLOGY) SODIUM 143 136 - 145 mmol/L 12/01/2024 10:18 PM [facility] POTASSIUM 2.8(L) 3.5 - 5.1 mmol/L 12/01/2024 10:18 PM [facility] CHLORIDE 111(H) 98 - 107 mmol/L 12/01/2024 10:18 PM [facility] CO2, VENOUS 16(L) 22 - 30 mmol/L 12/01/2024 10:18 PM [facility] ANION GAP 18.8(H) <18.0 mmol/L 12/01/2024 10:18 PM [facility] GLUCOSE 112(H) 70 - 99 mg/dL 12/01/2024 10:18 PM [facility] BUN 28(H) 10 - 20 mg/dL 12/01/2024 10:18 PM [facility] CREATININE, BLOOD 1.10(H) 0.60 - 1.00 mg/dL 12/01/2024 10:18 PM [facility] BUN/CREATININE RATIO 25(H) 12 - 20 ratio 12/01/2024 10:18 PM [facility] TOTAL PROTEIN 6.0 6.0 - 8.0 g/dL 12/01/2024 10:18 PM [facility] ALBUMIN 3.4(L) 3.5 - 5.0 g/dL 12/01/2024 10:18 PM [facility] A/G RATIO 1.3 1.0 - 2.2 12/01/2024 10:18 PM [facility] CALCIUM 8.3(L) 8.7 - 10.5 mg/dL 12/01/2024 10:18 PM [facility] T BILI 0.6 0.2 - 1.2 mg/dL 12/01/2024 10:18 PM [facility] SGOT (AST) 35 6 - 42 U/L 12/01/2024 10:18 PM [facility] SGPT (ALT) 20 6 - 55 U/L 12/01/2024 10:18 PM [facility] ALKALINE PHOSPHATASE 27(L) 40 - 150 U/L 12/01/2024 10:18 PM [facility] GFR, ESTIMATED 49(L) >=60 12/01/2024 10:18 PM [facility] Comment: Creatinine Clearance is the preferred criteria for selecting drug dose adjustments in renally impaired patients. The GFR is provided as additional pertinent clinical information. GFR is reported in mL/min/1.73 sq m. Calculation based on the Chronic Kidney Disease Epidemiology Collaboration (CKD- EPI) equation refit without adjustment for race. GFR, EST. 57(L) >=60 025 10:18 PM RN ANESTHESIOLOGY [facility] GFR, EST. NONAFRICAN 47(L) >=60 12/01/2024 10:18 PM RN ANESTHESIOLOGY [facility] Blood Venipuncture / Unknown 12/01/2024 9:37 PM RN ANESTHESIOLOGY 12/01/2024 9:50 PM RN ANESTHESIOLOGY us Breann Elva Nice BLOW DOWN HELPER, CONTINUOUS LINTER DRIER OPERATOR CHEMISTRY ORDERABLES Final Result [facility] [place] [address] * XR RETROGRADE PYELOGRAM (12/01/2024 3:03 PM RN ANESTHESIOLOGY) Zoe Lancaster MD IMG FLUOROSCOPY ORDERABLES Fin al Result * Pathology Surgical (12/01/2024 2:10 PM RN ANESTHESIOLOGY) Case Report Surgical Pathology Report Case: [id number] Authorizing Provider: Zoe Horton MD Collected: 12/01/2024 02:10 PM Ordering Location: [facility] Received: 12/02/2024 08:33 AM [facility] Main OR Pathologist: Irene Etienne MD PhD Specimens: A) - Surgical Implant, RIGHT URETERAL STENT B) - Stone, RIGHT RENAL STONE C) - Stone, LEFT RENAL STONE 12/03/2024 8:25 AM RN ANESTHESIOLOGY [facility] FINAL DIAGNOSIS A. Right ureteral stent, removal: - As described grossly. B. Calculus, right renal, removal: - Nephrolithiasis (gross examination only). C. Calculus, left renal, removal: - Nephrolithiasis (gross examination only). 12/03/2024 8:25 AM RN ANESTHESIOLOGY [facility] at 0825 RN ANESTHESIOLOGY Pre-Operative Diagnosis BILATERAL NEPHROLITHIASIS 12/03/2024 8:25 AM RN ANESTHESIOLOGY [facility] Gross Description A. RIGHT URETERAL STENT Specimen presents in three containers. All three containers are labeled with the patient's name, Lucero Lopez. Part A is designated as right ureteral stent. The specimen consists of a single light blue plastic tubing measuring 31 cm in length and 0.2 cm in diameter. This is for gross dictation only. B. RIGHT RENAL STONE Part B is designated as right renal stone. The specimen consists of two pieces of light rodriguez calculi measuring 0.1 to 0.2 cm in greatest dimension. It will be sent to a reference laboratory for crystallographic examination. This is for gross dictation only. C. LEFT RENAL STONE Part C is designated as left renal stone. The specimen consists of two pieces of light rodriguez calculi measuring a fraction of a millimeter up to 0.1 cm in greatest dimension. They will be sent to a reference laboratory for crystallographic examination. This is for gross dictation only. KS/sb 12/03/2024 8:25 AM RN ANESTHESIOLOGY [facility] Other SURGICAL TISSUE IMPLANT / Unknown 12/01/2024 2:10 PM RN ANESTHESIOLOGY 12/02/2024 8:33 AM RN ANESTHESIOLOGY Specimen of unknown material (specimen) STONE - BODY MATERIAL / Unknown 12/01/2024 2:12 PM RN ANESTHESIOLOGY 12/02/2024 8:33 AM RN ANESTHESIOLOGY Specimen of unknown material (specimen) STONE - BODY MATERIAL / Unknown 12/01/2024 2:40 PM RN ANESTHESIOLOGY 12/02/2024 8:33 AM RN ANESTHESIOLOGY Kalialaina Lancaster MD PATHOLOGY/CYTOLOGY ORDERABLES Final Result [facility] [place] [address] * LMA (12/01/2024 2:05 PM RN ANESTHESIOLOGY) Narrative Rudy Chavarria MD - 12/01/2024 2:05 PM RN ANESTHESIOLOGY Rudy Chavarria MD 12/01/2024 2:05 PM LMA Staffing Performed: anesthesiologist Performed by: Rudy Chavarria MD Authorized by: Rudy Chavarria MD Airway Details Overall Difficulty: Easy Preoxygenated: Yes Ease of Mask Ventilation: Not attempted LMA Type: Disposable LMA Size: 3 Adequate seal established: Yes LMA placement confirmed by: bilateral breath sounds, CO2 detection Atraumatic LMA Placement us Rudy Chavarria MD ANESTHESIA ORDERABLES Final R esult * CT REFERENCE IMAGES FOR IMAGE IMPORT (11/09/2024 12:19 PM RN ANESTHESIOLOGY) us Not On File Provider IMG CT ORDERABLES Final Res ult * Hemoglobin A1C w/ Estimated Glucose (10/08/2024 5:55 AM RN ANESTHESIOLOGY) HGB-A1C 5.7 4.0 - 6.0 % 10/08/2024 6:22 AM RN ANESTHESIOLOGY [facility] Est Average Glucose 116.9 mg/dL 10/08/2024 6:22 AM RN ANESTHESIOLOGY [facility] Blood Venipuncture / Unknown 10/08/2024 5:55 AM RN ANESTHESIOLOGY 10/08/2024 6:03 AM RN ANESTHESIOLOGY Narrative [facility] - 10/08/2024 6:22 AM RN ANESTHESIOLOGY HEMOGLOBIN A1C: DIABETIC PATIENTS: WELL-CONTROLLED: 6.2 - 7.0 INTERMEDIATE WELL-CONTROLLED: 7.0 - 9.0 POORLY-CONTROLLED: >9.0 us Bebe Mckeon MD CHEMISTRY ORDERABLES Final Re sult [facility] [address] [place] [address] from Last 3 Months or Most Recently Relevant to Health Maintenance Insurance MEDICARE COMMERCIAL GENERIC MEDICARE COMMERCIAL GENERIC , [address] [place], [place] Advance Directives * No CPR-Selective Treatment (Latest Code Status on File) Date Activated Date Inactivated Comments 12/01/2024 9:30 PM No CPR - Selec tive Treatment: FULL ARREST: Do Not Attempt Resuscitation. PRE-ARREST: DO NOT USE INTUBATION OR MECHANICAL VENTILATION, but may use basic medical treatment like CPAP or BiPAP, antibiotics, IV fluids, oxygen, etc. Avoid care in ICU setting. Question Answer Comments Physician documentation made in notes? Yes * Full Code Date Activated Date Inactivated Comments 10/06/2024 12:00 PM 12/01/2024 9:30 PM CPR-Full T reatment: FULL ARREST: Attempt Resuscitation/CPR wit intubation and mechanical ventilation. PRE-ARREST: Use entire range of life support measures to stabilize the patient. Care Teams Erector Operator Relationship Specialty Start Date End Date Yefri Torres MD [address] [place] [address] PCP - General Family Medicine 12/25/24 Zoe Horton MD [address] [address] Consulting Physician Urology 11/03/24
--- OUTSIDE RECORDS SUMMARY | 2025-01-07 18:48 | XMS_ITS | Encounter Summary ---
Author Organization [facility] Address [address] [place] [address] Phone Care Team Providers Care Public Relations Sales Marketing Name Role Phone RoseAnderson sanchez Primary Care Pro vider Zoe Horton MD Unavailable [phone] Yefri Torres MD Primary Care Provider Encounter Details Date Type Department Care Team (Late st Contact Info) Description 11/05/2024 Telephone [facility] [address] [place] [address] Zoe Horton MD [address] [address] Social History Tobacco Use Types Packs/Day Years Used Date Smoking Tobacco: Never Smokeless Tobacco: Never Alcohol Use Standard Drinks/Week Comments Never 0 (1 standard drink = 0.6 oz pur e alcohol) [facility] Utilities Answer Date Recorded In the past 12 months has [employer] electric, gas, oil, or water company threatened to shut off services in your home? No 10/06/2024 Social Connection and Isolat ion Panel [NHANES] Answer Date Recorded In a typical week, how many times do you talk on the phone with family, friends, or neighbors? Three times a week 10/06/2024 How often do you get togethe r with friends or relatives? Three times a week 10/06/2024 How often do you attend chur ch or worship services? More than 4 times per year 10/06/2024 Do you belong to any clubs o r organizations such as confucianist groups, unions, fraternal or athletic groups, or school groups? Yes 10/06/2024 How often do you attend meet ings of the clubs or organizations you belong to? More than 4 times per year 10/06/2024 Are you , , di vorced, , never , or living with a partner? 10/06/2024 AUDIT-C Answer Date Recorded Q1: How often do you have a drink containing alc ohol? 2-4 times a month 10/06/2024 Q2: How many drinks containi ng alcohol do you have on a typical day when you are drinking? 1 or 2 10/06/2024 Q3: How often do you have si x or more drinks on one occasion? Never 10/06/2024 Overall Financial Resource Strain (CARDIA) Answe r Date Recorded How hard is it for you to pa y for the very basics like food, housing, medical care, and heating? Not hard at all 10/06/2024 [facility] of Occupat ional Health - Occupational Stress Questionnaire Answer Date Recorded Do you feel stress - tense, restless, nervous, or anxious, or unable to sleep at night because your mind is troubled all the time - these days? Only a little 10/06/2024 Exercise Vital Sign Answer Date Recorde d On average, how many days pe r week do you engage in moderate to strenuous exercise (like a brisk walk)? 3 days 10/06/2024 On average, how many minutes do you engage in exercise at this level? 20 min 10/06/2024 Hunger Vital Sign Answer Date Recorded Within the past 12 months, y ou worried that your food would run out before you got the money to buy more. Never true 10/06/20 24 Within the past 12 months, t he food you bought just didn't last and you didn't have money to get more. Never true 10/06/2024 PRAPARE - Transportation Answer Date Re corded In the past 12 months, has l ack of transportation kept you from medical appointments or from getting medications? No 09/20 In the past 12 months, has l ack of transportation kept you from meetings, work, or from getting things needed for daily living? No 10/06/2024 Housing Stability Vital Sign Answer Vasquez e Recorded In the last 12 months, was t here a time when you were not able to pay the mortgage or rent on time? No 10/06/2024 In the past 12 months, how m any times have you moved where you were living? 0 10/06/2024 At any time in the past 12 m onths, were you homeless or living in a detention (including now)? No 10/06/2024 Sexually Active Control Partners Comments Not Currently Comments No Sex and Gender Information Value Date Recorded Sex Assigned at Not on file Legal Sex Female 6:48 PM CDT Gender Identity Not on file Sexual Orientation Not on file documented as of this encounter Miscellaneous Notes * Telephone Encounter - Shirin Mims - 11/13/2024 1:29 PM CST Please see Dr. Amador message ESS ENGINEERING INTERN * Telephone Encounter - Shirin Mims - 11/10/2024 10:09 AM CST Pts disk was given to radiology here at [facility] today. She also left a repeat cath sample. ESS ENGINEERING INTERN * Telephone Encounter - Shirin Mims - 11/09/2024 11:32 AM CST Pts disk was given to radiology here at [facility] today. She also left a repeat cath sample. ESS ENGINEERING INTERN * Telephone Encounter - Shirin Mims - 11/06/2024 12:16 PM CST Pt is to come in Saturday for repeat sample. ESS ENGINEERING INTERN * Telephone Encounter - Shirin Mims - 11/06/2024 12:13 PM CST Lm for pt to call back. ESS ENGINEERING INTERN * Telephone Encounter - Shirin Mims - 11/06/2024 9:48 AM CST Urine culture not resulted yet but shows contamination, which was done by cath. Pts daughter is working on getting Ct scan on CD. Pts daughter wanting to know what they should do about contaminated urine. Pt is not having any sx at this time. ESS ENGINEERING INTERN * Telephone Encounter - Zoe Horton MD - 11/05/2024 4:39 PM CST Please see the following for this patient: Scheduled for: Cystoscopy, bilateral ureteroscopy, lithotripsy, stent. She had a CT scan done at an outside facility, can you please have them bring a CD with the imagingto me as soon as possible. ESS ENGINEERING INTERN documented in this encounter Plan of Treatment Upcoming Encounters Date Type Department Care Team (Latest Contact Info) Description 02/09/2025 12:10 PM CDT [facility] [address] [place] [address] Zoe Horton MD #[address] [address] 02/09/2025 12:10 PM CDT - 02/09/2025 1:40 PM CDT [facility] [address] [place] [address] Zoe Horton MD [address] [address] RIGHT EXTRACORPOREAL SHOCKWAVE LITHOTRIPSY, ALFREDA/MIDWEST STONE CONF FOR 02/09 AT 1200 - JS Scheduled Procedures Name Priority Associated Diagnoses Date/Ti me ESWL BILATERAL NEPHROLITHIASIS 02/09/2025 12:10 PM CDT documented as of this encounter Visit Diagnoses Not on filedocumented in this encounter Care Teams Public Relations Sales Marketing Relationship Specialty Start Date End Date Anderson Valencia DO [address] [place] [id number] PCP - General Family Medicine 12/31/19 12/24/24 Yefri Torres MD [address] [place] [address] PCP - General Family Medicine 12/25/24 Zoe Horton MD [facility] [address] [address] Consulting Physician Urology 11/03/24 documented as of this encounter
--- OUTSIDE RECORDS SUMMARY | 2025-01-07 18:48 | XMS_ITS | Clinical Summary ---
Author Organization [facility] Address [address] [place] [address] Care Team Providers Care Cat Scan Technologist Name Role Phone Unavailable Primary Care Provider Unavailabl e Allergies Active Allergy Reactions Criticality Noted Date Comments Codeine Unknown 05/20/2014 Colesevelam Unknown 03/30/2016 Ezetimibe Unknown 03/30/2016 Ezetimibe-Simvastatin Unknown 03/30/2016 Iodine Unknown 05/20/2014 Meperidine Unknown 05/20/2014 Penicillins Other (see comment) 05/20/2014 Was told by a doctor when she was young this med does not work to help resolves her infections, She has never developed any swelling or rashes with this medication. Scopolamine Unknown 05/20/2014 Sulfa Antibiotics Unknown 03/30/2016 States that she was not sure what the reaction was. States that she was given at age 4 and was told never to take it every again due to the severity of her reaction. Medications Cholecalciferol (VITAMIN D3) 2000 units Cap Take 1 tablet by mouth daily. 11/24/19 15 Active vitamin B-12 100 MCG tablet Take 1 tablet (100 mcg total) by mouth daily. 07/31/20 18 Active PROAIR HFA 108 (90 Base) MCG/ACT inhalerIndications: Mild intermittent asthma without complication (HHS/HCC) USE 1 TO 2 INHALATIONS EVERY 4 TO 6 HOURS NEEDED (REPLACES XOPENEX) 25.5 g 3 05/31/20 19 Active aspirin EC 81 MG tablet Take 1 tablet (81 mg total) by mouth daily. Active triamcinolone 0.1 % creamIndications:In trinsic eczema Apply topically daily. 15 g 11/30/19 21 Active Additional Information Patient not taking.Reported on 09/16/2024 dicyclomine (BENTYL) 10 MG capsule Take 1 capsule (10 mg total) by mouth 4 (four) times daily before meals and nightly. 60 capsule 07/29/20 23 Active ondansetron (ZOFRAN-ODT) 4 MG disintegrating tablet Take 1 tablet (4 mg total) by mouth every 8 (eight) hours as needed for Nausea. 20 tablet 07/29/20 23 Active Misc. Devices (WALKER) MiscIndications:Casey ateral chronic knee pain,Falls frequently 1 seated wheeled walker 1 each 06/08/20 24 Active diclofenac sodium (VOLTAREN) 1 % gelIndications:Bila teral chronic knee pain Apply 4 g topically 4 (four) times daily. 350 g 07/01/20 24 Active Choline Fenofibrate (FENOFIBRIC ACID) 135 MG CAPSULE DELAYED RELEASEIndications: Mixed hyperlipidemia Take 1 capsule by mouth daily. 90 capsule 1 08/07/20 24 Active metoprolol succinate ER (TOPROL-XL) 25 MG 24 hr tabletIndications:E ssential hypertension take 1 tablet daily 90 tablet 3 08/09/20 24 Active pravastatin (PRAVACHOL) 20 MG tabletIndications:T ype 2 diabetes mellitus with stage 3b chronic kidney disease, without long-term current use of insulin ([facility] HHS/HCC),Stage 3b chronic kidney disease ([facility]),Atheroscl erosis of coronary artery of southern ute heart without angina pectoris, unspecified vessel or lesion type TAKE 1 TABLET NIGHTLY AT BEDTIME 90 tablet 3 08/13/20 24 Active metFORMIN (GLUCOPHAGE) 500 MG tabletIndications:T ype 2 diabetes mellitus ([facility] HHS/HCC) TAKE 1 TABLET DAILY WITH BREAKFAST 90 tablet 3 09/04/20 24 Active NIFEdipine XL (PROCARDIA XL) 60 MG 24 hr tabletIndications:E ssential hypertension TAKE 1 TABLET DAILY 90 tablet 3 10/26/19 25 Active triamterene-hydroCH LOROthiazide (DYAZIDE) 37.5-25 MG capsuleIndications: Essential hypertension TAKE 1 CAPSULE DAILY 90 capsule 3 10/26/19 25 Active denosumab (PROLIA) 60 MG/ML injectionIndication s:Age-related osteoporosis without current pathological fracture Inject 1 mL (60 mg total) into the skin every 6 (six) months. 1 mL 1 12/23/19 25 Active denosumab (PROLIA) 60 MG/ML injectionIndication s:Age-related osteoporosis without current pathological fracture Inject 1 mL (60 mg total) into the skin every 6 (six) months. 1 mL 1 12/19/19 24 025 Discontin ued(Reord er) Active Problems Problem Noted Date Diagnosed Date Knee pain 07/13/2024 Type 2 diabetes mellitus wit h stage 3b chronic kidney disease, without long-term current use of insulin ([facility]) 08/10/2022 Stage 3b chronic kidney disease 02/22/2022 Age-related osteoporosis wit hout current pathological fracture 06/15/2021 Atherosclerosis of coronary artery 07/02/2017 Mild intermittent asthma without complication (H /[facility]) 01/26/2016 Loss of height 11/01/2014 Vitamin D deficiency 11/01/2014 Essential hypertension 05/20/2014 Mixed hyperlipidemia 05/20/2014 Resolved Problems Problem Noted Date Diagnosed Date Resolved Date UTI (urinary tract infection) 07/28/2023 12/30/2023 Type 2 diabetes mellitus ([facility]) 05/25/2014 08/10/2022 Encounter for preventive health examination 05/19/2014 07/01/2020 Encounters Date Type Department Care Team Description 12/22/2024 Telephone [facility] [address] [place] [address] Anderson Valencia, DO Information 12/22/2024 Orders Only [facility] [address] [place] [address] Deanna Alccoer LPN 12/07/2024 Telephone [facility] [address] [place] [address] Anderson Valencia, DO Information 11/17/2024 Scan [facility] Scanned, [facility] 11/09/2024 Scan [facility] Scanned, [facility] Lab (SCAN) 11/09/2024 Orders Only [facility] [address] [place] [address] Anderson Valencia DO 2024 Scan [facility] Scanned, [facility] Lab (SCAN) 10/30/2024 Scan [facility] Scanned, [facility] Lab (SCAN) 10/12/2024 Telephone [facility] [address] [place] [address] Anderson Valencia, DO Information (Hospital course/) from Last 3 Months Immunizations Name Administration Dates Next Due Arexvy Respiratory Syncytial Virus (RSV, adjuvanted) 0.5 mL, PF 09/04/2023 Fluzone High Dose - >Age 65 (Prefilled Syringe) 08/19/2023,08/10/2022,06/26/2020,2018,07/31/2018,07/02/2017 Influenza Adult (Generic) 11/16/2015,09/30/2014 MODERNA COVID-19 BIVALENT (1 2+), MRNA, LNP-S, PF 08/28/2022 MODERNA COVID-19 (12+) MRNA, LNP-S, PF, 100 MCG/ 0.5 ML DOSE 09/06/2021,01/23/2021,12/26/2020 Pneumococcal (Pneumovax 23) 01/21/2019 Pneumococcal (Prevnar 13) 12/23/2017 Tdap (Adacel) 04/20/2021 Family History Medical History Relation Comments Heart Disease Brother 1 Heart Disease Brother 2 Kidney Disease Brother 3 Heart Disease Brother 4 Heart Disease Brother 5 No Known Problems Father Heart Disease Mother Cancer Sister 1 Heart Disease Sister 2 Mental Health Sister 3 Heart Disease Sister 4 Relation Status Comments Brother 1 Brother 2 Alive Brother 3 Alive Brother 4 Alive Brother 5 Alive Father Mother Sister 1 Sister 2 Alive Sister 3 Sister 4 Alive Social History Tobacco Use Types Packs/Day Years Used Date Smoking Tobacco: Never Smokeless Tobacco: Never Tobacco Cessation:Counseling Given: No Comments:never Alcohol Use Standard Drinks/Week Comments No 0 (1 standard drink = 0.6 oz pur e alcohol) no Humiliation, Afraid, Rape, and Kick questionnair e Answer Date Recorded Within the last year, have y ou been afraid of your partner or ex-partner? No 07/28/2023 Within the last year, have y ou been humiliated or emotionally abused in other ways by your partner or ex-partner? No Within the last year, have y ou been kicked, hit, slapped, or otherwise physically hurt by your partner or ex-partner? No 07/28/2023 Within the last year, have y ou been raped or forced to have any kind of sexual activity by your partner or ex-partner? No 07/28/2023 AUDIT-C Answer Date Recorded Frequency of Alcohol Consumption Never 09/01/2018 Average Number of Drinks Not on file Frequency of Binge Drinking Not on file 08/21 Overall Financial Resource Strain (CARDIA) Answe r Date Recorded How hard is it for you to pa y for the very basics like food, housing, medical care, and heating? Not hard at all 07/28/2023 PHQ-2 Answer Date Recorded Patient Health Questionnaire-2 Score 0 07/01/2024 Hunger Vital Sign Answer Date Recorded Within the past 12 months, y ou worried that your food would run out before you got the money to buy more. Never true 07/28/20 23 Within the past 12 months, t he food you bought just didn't last and you didn't have money to get more. Never true 07/28/2023 PRAPARE - Transportation Answer Date Re corded In the past 12 months, has l ack of transportation kept you from medical appointments or from getting medications? No 05/2023 In the past 12 months, has l ack of transportation kept you from meetings, work, or from getting things needed for daily living? No 07/28/2023 Housing Stability Vital Sign Answer Vasquez e Recorded In the last 12 months, was t here a time when you were not able to pay the mortgage or rent on time? No 07/28/2023 In the last 12 months, how many places have you lived? 1 07/28/2023 In the last 12 months, was t here a time when you did not have a steady place to sleep or slept in a long term (including now)? No 07/28/2023 Comments No Sex and Gender Information Value Date Recorded Sex Assigned at Not on file Legal Sex Female 6:46 PM CDT Gender Identity Not on file Sexual Orientation Not on file Last Filed Vital Signs Vital Sign Reading Time Taken Comments Blood Pressure 128/58 10/06/2024 6:30 AM PERSONAL DEVELOPMENT MENTOR Pulse 76 10/06/2024 8:00 AM PERSONAL DEVELOPMENT MENTOR Temperature 36.6 C (97.9 F) 10/06/2024 5:54 AM PERSONAL DEVELOPMENT MENTOR Respiratory Rate 15 10/06/2024 8:00 AM PERSONAL DEVELOPMENT MENTOR Oxygen Saturation 97% 10/06/2024 8:00 AM PERSONAL DEVELOPMENT MENTOR Inhaled Oxygen Concentration - - Weight 53.5 kg (118 lb) 10/05/2024 7:25 PM PERSONAL DEVELOPMENT MENTOR Height 162.6 cm (5' 4 ) 10/05/2024 7:25 PM PERSONAL DEVELOPMENT MENTOR Body Mass Index 20.25 10/05/2024 7:25 PM PERSONAL DEVELOPMENT MENTOR Plan of Treatment Upcoming Encounters Date Type Department Care Team (Late st Contact Info) Description 01/15/2025 10:00 AM CDT Appointment [facility] [address] [place] [address] Anderson Valencia, DO [address] [place] [address] Health Maintenance Due Date Last Done Comments Zoster Vaccines (1 of 2) 1990 Annual Medicare Wellness Visit 04/21/2022 04/20/2021 COVID-19 Vaccine ( season) 2024 07/25/2023, 08/28/2022, 09/06/2021, Additional history exists Influenza Adult (#1) 2024 08/19/2023, 08/10/2022, 06/26/2020, Additional history exists PHQ-2 (Physician [place]) 10/21/2024 07/01/2024 ASCVD LDL 01/05/2025 01/06/2024, 11/21, 12/21/2021, Additional history exists Lipid Panel 01/05/2025 01/06/2024, 11/21, 12/21/2021, Additional history exists Hemoglobin A1C 04/08/2025 10/08/2024, 05/21, 01/06/2024, Additional history exists Diabetes: Retinopathy Eye Exam 12/30/2025 12/31/2023, 12/11/2022, 01/23/2022, Additional history exists DTaP, Tdap and Td Vaccines (2 - Td or Tdap) 04/20/2031 04/20/2021 Pneumococcal Vaccine: 65+ Years Completed 01/21/2019, 12/23/2017 RSV Immunization or 60+ Years Completed 09/04/2023 Meningococcal B Vaccine Aged Out No l onger eligible based on patient's age to complete this topic Meningococcal Vaccine Aged Out No hernesto leobardo eligible based on patient's age to complete this topic RSV Immunizations Under 20 Months Aged Out No longer eligible based on patient's age to complete this topic Medical Devices Implanted Type Area Insurance Office Supervisor Device Identifier Shelf Expiration Date Model / Serial / Lot Iol Sonny Acu0t0 - [id number] Implanted:Qty: 1 on 03/02/2022 by Troy Garcia MD at [facility] Eye Left: Eye [employer] [id number] 05/29/2024 [id number] / [id number] / [id number] Iol Sonny Acu0t0 - [id number] Implanted:Qty: 1 on 03/16/2022 by Troy Garcia MD at [facility] Eye Right: Eye [employer] [id number] 05/27/2024 [id number] / [id number] / Procedures Procedure Name Priority Date/Time Associated Diagnosis Comments OUTSIDE LAB (SCAN ORDER) 11/09/2024 OUTSIDE LAB (SCAN ORDER) 11/09/2024 OUTSIDE LAB (SCAN ORDER) 2024 OUTSIDE LAB (SCAN ORDER) 10/30/2024 HEMOGLOBIN, GLYCOSYLATED Routine 06/08/2024 11:00 AM CDT Essential hypertension Type 2 diabetes mellitus with stage 3b chronic kidney disease, without long-term current use of insulin LIPID PANEL Routine 01/06/2024 6:50 AM CDT Essential hypertension Atherosclerosis of coronary artery of southern ute heart without angina pectoris, unspecified vessel or lesion type Type 2 diabetes mellitus with stage 3b chronic kidney disease, without long-term current use of insulin DIABETIC RETINOPATHY EXAM (NEGATIVE)(SCAN ORDER) Routine 12/31/2023 from Last 3 Months or Most Recently Relevant to Health Maintenance Results * OUTSIDE LAB (SCAN ORDER) (11/09/2024) Only the most recent of4 resultswithin the time period is included. 11/09/2024 [facility] Scanned SCANNING Final Resu lt * (ABNORMAL) HEMOGLOBIN, GLYCOSYLATED (06/08/2024 11:00 AM CDT) HGB A1C 5.9(H) <5.7 % 06/08/2024 2:38 PM CDT [facility] ESTIMATED AVG GLUCOSE 123(H) 74 - 114 MG/DL 06/08/2024 2:38 PM CDT [facility] 06/08/2024 11:0 0 AM CDT Anderson Valencia DO LABORATORY Final R esult [facility] [address] [place] [address], * (ABNORMAL) LIPID PANEL (01/06/2024 6:50 AM CDT) CHOLESTEROL 158 0 - 200 MG/DL 01/06/2024 7:23 AM CDT [facility] TRIGLYCERIDES 71 <150 MG/DL 01/06/2024 7:23 AM CDT [facility] HDL 61(H) 40 - 60 MG/DL 01/06/2024 7:23 AM CDT [facility] LDL-C 83 <130 MG/DL 01/06/2024 7:[address] [facility] VLDL CALCULATION 14 MG/DL 01/06/20 7:23 AM CDT [facility] Comment:REFERENCE RANGE NOT ESTABLISHED CHOL/HDL RATIO 2.6 01/06/2024 7:23 AM CDT [facility] Comment:REFERENCE RANGE NOT ESTABLISHED LDL/HDL 1.4 01/06/2024 7:23 AM CDT [facility] Comment:REFERENCE RANGE NOT ESTABLISHED NON HDL CHOLESTEROL 97 MG/DL 01/06/2024 7:23 AM CDT [facility] 01/06/2024 6:50 AM CDT Anderson Valencia DO LABORATORY Final R esult Performing Organization Address City/[facility]/ZIP Co de Phone Number [facility] [address] [place] [address], * DIABETIC RETINOPATHY EXAM (NEGATIVE) (12/31/2023) [facility] Scanned SCANNING Final Resu lt Performing Organization Address City/[facility]/ZIP Co de Phone Number [facility] ONBASE from Last 3 Months or Most Recently Relevant to Health Maintenance Insurance MEDICARE [facility] Advance Directives * Full Code (Latest Code Status on File) Date Activated Date Inactivated Comments 07/28/2023 5:14 PM 07/29/2023 6:54 PM
--- OUTSIDE RECORDS SUMMARY | 2025-01-07 18:48 | XMS_ITS | Encounter Summary ---
Author Organization [facility] Address [address] [place] [address] Phone Care Team Providers Care Kennel Assistant Name Role Phone Anderson Valencia Primary Care Pro vider Zoe Horton MD Unavailable [phone] Yefri Torres MD Primary Care Provider Encounter Details Date Type Department Care Team (Late st Contact Info) Description 10/06/2024 Telephone [facility] [address] [place] [address] Zoe Horton MD [address] [address] Social History Tobacco Use Types Packs/Day Years Used Date Smoking Tobacco: Never Assessed [facility] Utilities Answer Date Recorded In the past 12 months has [facility] electric, gas, oil, or water company threatened [...] often do you attend chur ch or judaism services? More than 4 times per year 10/06/2024 Do you belong to any clubs o r organizations such as yazidi groups, unions, fraternal or athletic groups, or [...] and heating? Not hard at all 10/06/2024 [facility] - Occupational Stress [...] any time in the past 12 m [facility], were you homeless or living in a long-term (including now)? No 10/06/2024 Comments No Sex and Gender Information Value Date Recorded Sex Assigned at Not on file Legal Sex Female 6:48 PM CDT Gender Identity Not on file Sexual Orientation Not on file documented as of this encounter Functional Status * Audit-C Score Answer Date of Assessment Author 2 10/06/2024 11:16 AM Sr. Javi Ng RN * Question Answer Date of Assessment Author Q1: How often do you have a drink containing alcohol? 2-4 times a month 10/06/2024 11:16 AM Sr. Javi Ng RN Q2: How many drinks containing alcohol do you have on a typical day when you are drinking? 1 or 2 10/06/2024 11:16 AM Sr. Javi Ng RN Q3: How often do you have six or more drinks on one occasion? Never 10/06/2024 11:16 AM Sr. Javi Ng RN documented as of this encounter Miscellaneous Notes * Telephone Encounter - Shirni Mims - 10/23/2024 3:07 PM CST Pt scheduled on 10-30-2024 SOFTWARE ENGINEER * Telephone Encounter - Shirin Mims - 10/23/2024 9:34 AM CST Unable to reach this pt. Left 3 voice mails and mailed letter. SOFTWARE ENGINEER * Telephone Encounter - Shirin Mims - 10/19/2024 11:06 AM CST Left message/ Mailed letter SOFTWARE ENGINEER * Telephone Encounter - Shirin Mims - 10/12/2024 2:55 PM CST Message left for pt to call back. SOFTWARE ENGINEER * Telephone Encounter - Shirin Mims - 10/08/2024 9:42 AM CST Left message for pt to call back. SOFTWARE ENGINEER * Telephone Encounter - Zoe Horton MD - 10/06/2024 3:46 PM CST OV in 2 weeks please SOFTWARE ENGINEER documented in this encounter Plan of Treatment Upcoming Encounters Date Type Department Care Team (Latest Contact Info) Description 02/09/2025 12:10 PM CDT [facility] [place] [address] Zoe Horton MD #[address] [address] 02/09/2025 12:10 PM CDT - 02/09/2025 1:40 PM CDT [facility] [address] [place] [address] Zoe Horton MD #[address] [address] RIGHT EXTRACORPOREAL SHOCKWAVE LITHOTRIPSY, ALFREDA/[facility] STONE CONF FOR 02/09 AT 1200 - JS Scheduled Procedures Name Priority Associated Diagnoses Date/Ti me ESWL BILATERAL NEPHROLITHIASIS 02/09/2025 12:10 PM CDT documented as of this encounter Visit Diagnoses Not on filedocumented in this encounter Care Teams Kennel Assistant Relationship Specialty Start Date End Date Anderson Valencia DO [address] [place] [address] PCP - General Family Medicine 12/31/19 12/24/24 Yefri Torres MD [address] [place] [address] PCP - General Family Medicine 12/25/24 Zoe Horton MD #[address] [address] Consulting Physician Urology 11/03/24 documented as of this encounter
[2025-01-07 19:18] VITALS: BP 142/80; PULSE 88; RESP 18; TEMP 36.8; O2SAT 98
[2025-01-07 20:17] LABS: Glucose Point of Care 191 mg/dl (65-105)
[2025-01-07 23:16] VITALS: BP 142/58; PULSE 83; RESP 14; O2SAT 96
[2025-01-07 23:29] LABS: Basophils Percent Auto 0.2 % (0.2-1.2); Eosinophils Percent Auto 0.3 % (0-4.4); Hematocrit 39.5 % (37.0-47.0); Hemoglobin 12.5 g/dL (12.0-15.0); Immature Granulocyte Absolute 0.06 K/mm3 (0.00-0.031); Immature Granulocyte Percent A 0.4 % (0-0.5); Lymphocytes Absolute Auto 0.31 K/mm3 (0.9-3.2); Lymphocytes Percent Auto 2.1 % (18.3-44.2); Mean Corpuscular HGB Conc 31.6 g/dl (32-36); Mean Corpuscular Hemoglobin 30.3 pg (26-34); Mean Corpuscular Volume 95.9 fl (80-100); Mean Platelet Volume 10.4 fl (7.4-10.4); Monocytes Absolute Auto 0.5 K/mm3 (0.1-0.6); Monocytes Percent Auto 3.6 % (2.6-8.5); Neutrophils Absolute Auto 13.6 K/mm3 (1.3-6.7); Neutrophils Percent Auto 93.4 % (45.5-73.1); Platelet Count Result 218 k/mm3 (150-375); Red Blood Count 4.12 M/mm3 (4.2-5.4); Red Cell Distribution Width 15.3 % (11.5-14.5); White Blood Count 14.5 K/mm3 (4.5-10.0)
[2025-01-07 23:39] LABS: Alanine Aminotransferase 26 U/L (6-35); Albumin Level 4.2 g/dL (3.5-5.1); Alkaline Phosphatase 37 U/L (38-126); Anion Gap 17 mmol/L (4-12); Aspartate Amino Transferase 30 U/L (14-36); Bilirubin,Total 0.5 mg/dL (0.2-1.3); Blood Urea Nitrogen 58 mg/dL (7-17); Calcium 9.2 mg/dL (8.4-10.2); Carbon Dioxide 20 mmol/L (22-30); Chloride 104 mmol/L (98-107); Estimated CRCL calculation 25 ml/min; Estimated Glomerular Filt Rate 46; Glucose 178 mg/dL (65-110); Potassium 3.8 mmol/L (3.4-5.0); Sodium 141 mmol/L (137-145)
[2025-01-08] VITALS (8 sets, daily range): BP systolic 131–143; BP diastolic 47–74; PULSE 71–87; RESP 14–20; TEMP 36.6–36.8; O2SAT 94–100
[2025-01-08 00:05] LABS: Anisocytosis 1+; Band Neutrophils Percent 0 % (0-6); Hypochromasia 1+; Platelet Estimate Adequate (Adequate); Schistocytes None Seen
--- OUTSIDE RECORDS SUMMARY | 2025-01-08 00:09 | XMS_ITS | Encounter Summary ---
Author Organization [facility] Address [address] [place] [address] [place] [address] Phone Care Team Providers Care Photographic Press Screwmaker Name Role Phone RoseAnderson sanchez Primary Care Pro vider Zoe Horton MD Unavailable [phone] Yefri Torres MD Primary Care Provider Encounter Details Date Type Department Care Team (Late st Contact Info) Description 12/01/2024 Telephone [facility] [address] [place] [address] Zoe Horton MD [address] [address] Social History Tobacco Use Types Packs/Day Years Used Date Smoking Tobacco: Never Smokeless Tobacco: Never Alcohol Use Standard Drinks/Week Comments Never 0 (1 standard drink = 0.6 oz pur e alcohol) [facility] Utilities Answer Date Recorded In the past 12 months has [employer], gas, oil, or water company threatened to [...] declined 12/02/2024 How often do you attend scientologist or hoahaoism serv ices? Patient declined 12/02/2024 Do you belong to any clubs o r organizations such as scientologist groups, unions, fraternal or athletic groups, or [...] medical care, and heating? Patient declined 12/02/2024 [facility] - Occupational Stress [...] any time in the past 12 m [facility], were you homeless or living in a halfway (including now)? Patient declined 12/02/2024 Sexually Active [...] then callus back to schedule the cysto. ER POWDER BLENDER WET * Telephone Encounter - Zoe Horton MD - 12/01/2024 3:[address] in 7-10 days, cysto stent pull in [address] prior to cysto appt ER POWDER BLENDER WET documented in this encounter Plan of Treatment Upcoming Encounters Date Type Department Care Team (Latest Contact Info) Description 02/09/2025 12:10 PM CDT [facility] [place] [address] Zoe Horton MD #[address] [address] 02/09/2025 12:10 PM CDT - 02/09/2025 1:40 PM CDT [facility] [place] [address] Zoe Horton MD #[address] [address] RIGHT EXTRACORPOREAL SHOCKWAVE LITH[facility]RIPSY[facility]09 AT 1200 - JS Scheduled Procedures Name Priority Associated Diagnoses Date/Ti me ESWL BILATERAL NEPHROLITHIASIS 02/09/2025 12:10 PM CDT documented as of this encounter Visit Diagnoses Not on filedocumented in this encounter Care Teams Photographic Press Screwmaker Relationship Specialty Start Date End Date Anderson Valencia DO [address] [place] [id number] PCP - General Family Medicine 12/31/19 12/24/24 Yefri Torres MD [address] [place] [address] PCP - General Family Medicine 12/25/24 Zoe Horton MD #[address] [address] Consulting Physician Urology 11/03/24 documented as of this encounter
--- OUTSIDE RECORDS SUMMARY | 2025-01-08 00:10 | XMS_ITS | Clinical Summary ---
Author Organization [facility] Address [address] [place] [address] Phone Care Team Providers Care Caregivers Homecare Name Role Phone Zoe Horton MD Unavailable [phone] Yefri Torres MD Primary Care Provider [...] 1 Capsule by mouth every morning. Active Multiple Vitamins-Minera ls (CENTRUM SILVER ADULT [...] more severe pain. 10 Tablet 5 Active metFORMIN (GLUCOPHAGE) 500 MG Tablet Take 0.5 Tablets by mouth daily for 90 days. 45 Tablet 4 01/08/20 25 levoFLOXacin (LEVAQUIN) 500 MG Tablet Take 1 [...] Telephone [facility] [place] [address] Zoe Horton MD 12/25/2024 11:30 AM CAMPGROUND MANAGER Office Visit [facility] [address] [place] [address] Zoe Horton MD UTI symptoms (Primary Dx) Discharge Disposition: Discharged to home or Selfcare 12/23/2024 Travel 12/15/2024 6:14 PM CAMPGROUND MANAGER - 12/15/2024 11:59 PM CAMPGROUND MANAGER Hospital Encounter [facility] [address] [place] [address] Zoe Horton MD Discharge Disposition: Discharged to home or Selfcare 12/14/2024 Travel 12/03/2024 Telephone [facility] [address] [place] [address] Nilo Man, PARTY COORDINATOR, CASH MANAGEMENT CLERK Erroneous Encounter - Disregard 12/01/2024 1:51 PM CAMPGROUND MANAGER Anesthesia Event [facility] [address] [place] [address] Rduy Chavarria MD 12/01/2024 1:10 PM CAMPGROUND MANAGER - 12/01/2024 2:40 PM CAMPGROUND MANAGER Surgery [facility] [address] [place] [address] Zoe Horton MD BILATERAL URETEROSCOPY AND BASKET STONE EXTRACTION 12/01/2024 10:53 AM CAMPGROUND MANAGER - 12/04/2024 4:30 PM CAMPGROUND MANAGER Hospital Encounter [facility] [address] [place] [address] Zoe Horton MD Dianati, Behfar, MD Carmicheal, Crystal Marie, MD EUGENIE (acute kidney injury) (HCC) Discharge Disposition: Discharged/Transferr ed to Rehab Facility (IRF)/Unit 12/01/2024 Telephone [facility] [address] [place] [address] Zoe Horton MD 12/01/2024 Travel 11/17/2024 Travel 11/16/2024 Telephone [facility] [address] [place] [address] Zoe Horton MD 11/11/2024 Results Follow-Up [facility] [address] [place] [address] Zoe Horton MD 11/09/2024 12:19 PM CAMPGROUND MANAGER - 11/09/2024 11:59 PM CAMPGROUND MANAGER Hospital Encounter [facility] [address] [place] [address] Provider, Not On File Discharge Disposition: Discharged to home or Selfcare 11/09/2024 11:00 AM CAMPGROUND MANAGER Clinical Support [facility] [address] [place] [address] Handy Parson Urologandrea UTI symptoms Discharge Disposition: Discharged to home or Selfcare 11/08/2024 Travel 11/05/2024 Telephone [facility] [address] [place] [address] Zoe Horton MD 2024 2:00 PM CAMPGROUND MANAGER Clinical Support [facility] [address] [place] [address] Handy Parson Urology UTI symptoms (Primary Dx) Discharge Disposition: Discharged to home or Selfcare 11/03/2024 Travel 10/30/2024 1:00 PM CAMPGROUND MANAGER Office Visit [facility] [address] [place] [address] Zoe Horton MD UTI symptoms (Primary Dx) Discharge Disposition: Discharged to home or Selfcare 10/29/2024 Travel from Last 3 Months Immunizations Immunization Administration [...] drink = 0.6 oz pur e alcohol) [facility] [employer] Answer Date Recorded In the past 12 months has [employer], gas, oil, or water [employer] threatened to shut off services in your home? Patient declined 12/02/2024 Social Connection and Isolation Panel [NHANES] A nswer Date Recorded In a typical week, how many times do you talk on the phone with family, friends, or neighbors? Patient declined 12/02/2024 How often do you get togethe r with friends or relatives? Patient declined 12/02/2024 How often do you attend mormonism or mandaeism serv ices? Patient declined 12/02/2024 Do you belong to any clubs o r organizations such as mormonism groups, unions, fraternal or athletic groups, or [...] and heating? Patient declined 12/02/2024 [facility] - Occupational [...] any time in the past 12 m [facility], were you homeless or living in a long-term (including now)? Patient declined 12/02/2024 Sexually Active Control Partners Comments Not Currently Comments No Sex and Gender Information Value Date Recorded Sex Assigned at Not on file Legal Sex Female 6:48 PM CDT Gender Identity Not on file Sexual Orientation Not on file Last Filed Vital Signs Vital Sign Reading Time Taken Comments Blood Pressure 150/65 12/25/2024 11:23 AM CAMPGROUND MANAGER Pulse 75 12/25/2024 11:23 AM CAMPGROUND MANAGER Temperature 36.3 C (97.3 F) 12/04/2024 3:43 PM CAMPGROUND MANAGER Respiratory Rate 16 12/25/2024 11:23 AM CAMPGROUND MANAGER Oxygen Saturation 96% 12/25/2024 11:23 AM CAMPGROUND MANAGER Inhaled Oxygen Concentration - - Weight 57.4 kg (126 lb 9.6 oz) 12/25/2024 11:23 AM CAMPGROUND MANAGER Height 160 cm (5' 3 ) 12/25/2024 11:23 AM CAMPGROUND MANAGER Body Mass Index 22.43 12/25/2024 11:23 AM CAMPGROUND MANAGER Plan of Treatment Upcoming Encounters Date Type Department Care Team (Latest Contact Info) Description 02/09/2025 12:10 PM CDT Hospital Encounter [facility] [address] [place] [address] Zoe Horton MD #[address] [address] 02/09/2025 12:10 PM CDT - 02/09/2025 1:40 PM CDT Surgery [facility] [address] [place] [address] Zoe Horton MD #[address] [address] RIGHT EXTRACORPOREAL SHOCKWAVE LITHOTRIPSY, [facility] STONE CONF FOR 02/09 AT 1200 - [...] this topic Medical Devices Implanted Type Area Managed Care Liaison Device Identifier Shelf Expiration Date Model / Serial / Lot Stent Ureteral 6fr 2.1fr 24cm 2 Pigtail Curve 2 Durometer Taper Tip Loprfl Graduated Polaris Ultra - [id number] Implanted:Qty : 1 on 12/01/2024 by Zoe Horton MD at [facility] IMPLANT Right: Ureter [employer] 07/14/2027 [id number] 0 / [id number] 0 / [id number] Description:STRINGS OFF Stent Ureteral 6fr 2.1fr 24cm 2 Pigtail Curve 2 Durometer Taper Tip Loprfl Graduated Polaris Ultra - [id number] Implanted:Qty : 1 on 12/01/2024 by [facility] IMPLANT Left: Ureter [employer] 03/11/2027 [id number] 0 / [id number] 0 / [id number] Explanted Type Area Managed Care Liaison Device Identifier Shelf Expiration Date Model / Serial / Lot Stent Ureteral 6fr 2.1fr 26cm 2 Pigtail Curve 2 Durometer Taper Tip Loprfl Graduated Polaris Ultra - [id number] Implanted:Qty : 1 on 10/06/2024 by Zoe Horton MD at [facility] Explanted:Qty : 1 on 12/01/2024 by Zoe Horton MD at [facility] IMPLANT Right: Ureter [employer] 03/11/2027 [id number] 0 / [id number] 0 / [id number] Description:STRINGS OFF Procedures Procedure Name Priority Date/Time Associated Diagnosis Comments CULTURE, URINE Routine 12/25/2024 11:49 AM CAMPGROUND MANAGER UTI symptoms CT RENAL STONE STUDY (ABDOMEN AND PELVIS W/O CONTRAST) Routine 12/15/2024 6:28 PM CAMPGROUND MANAGER Kidney stone POCT GLUCOSE Routine 12/04/2024 1:04 PM CAMPGROUND MANAGER POCT GLUCOSE Routine 12/04/2024 10:11 AM CAMPGROUND MANAGER CBC WITH AUTO DIFFERENTIAL Routine 12/04/2024 5:51 AM CAMPGROUND MANAGER COMPLETE BLOOD COUNT (CBC) WITH DIFF Routine 12/04/2024 5:51 AM CAMPGROUND MANAGER BASIC METABOLIC PANEL W/ CALCIUM TOTAL Routine 12/04/2024 5:51 AM CAMPGROUND MANAGER POCT GLUCOSE Routine 12/03/2024 7:59 PM CAMPGROUND MANAGER POCT GLUCOSE Routine 12/03/2024 3:41 PM CAMPGROUND MANAGER POCT GLUCOSE Routine 12/03/2024 11:33 AM CAMPGROUND MANAGER POCT GLUCOSE Routine 12/03/2024 6:49 AM CAMPGROUND MANAGER CBC WITH AUTO DIFFERENTIAL Routine 12/03/2024 6:05 AM CAMPGROUND MANAGER COMPLETE BLOOD COUNT (CBC) WITH DIFF Routine 12/03/2024 6:05 AM CAMPGROUND MANAGER BASIC METABOLIC PANEL W/ CALCIUM TOTAL Routine 12/03/2024 6:05 AM CAMPGROUND MANAGER RHYTHM STRIP 12/03/2024 12:00 AM CAMPGROUND MANAGER RHYTHM STRIP 12/03/2024 12:00 AM CAMPGROUND MANAGER POCT GLUCOSE Routine 12/02/2024 8:07 PM CAMPGROUND MANAGER POCT GLUCOSE Routine 12/02/2024 4:42 PM CAMPGROUND MANAGER URINALYSIS REFLEX IF INDICATED BY ABNORMAL RESULTS Routine 12/02/2024 3:00 PM CAMPGROUND MANAGER CULTURE, URINE Routine 12/02/2024 3:00 PM CAMPGROUND MANAGER POCT GLUCOSE Routine 12/02/2024 11:07 AM CAMPGROUND MANAGER POCT GLUCOSE Routine 12/02/2024 7:41 AM CAMPGROUND MANAGER CBC WITH AUTO DIFFERENTIAL Routine 12/02/2024 5:18 AM CAMPGROUND MANAGER COMPLETE BLOOD COUNT (CBC) WITH DIFF Routine 12/02/2024 5:18 AM CAMPGROUND MANAGER BASIC METABOLIC PANEL W/ CALCIUM TOTAL Routine 12/02/2024 5:18 AM CAMPGROUND MANAGER XR CHEST SINGLE VIEW PORTABLE Routine 12/02/2024 2:47 AM CAMPGROUND MANAGER POCT GLUCOSE Routine 12/02/2024 1:11 AM CAMPGROUND MANAGER RHYTHM STRIP 12/02/2024 12:00 AM CAMPGROUND MANAGER RHYTHM STRIP 12/02/2024 12:00 AM CAMPGROUND MANAGER RHYTHM STRIP 12/02/2024 12:00 AM CAMPGROUND MANAGER MANUAL DIFFERENTIAL Routine 12/01/2024 9 :37 PM CAMPGROUND MANAGER CBC WITH AUTO DIFFERENTIAL Routine 12/01/2024 9:37 PM CAMPGROUND MANAGER CMP (COMPREHENSIVE METABOLIC PANEL) Routine 12/01/2024 9:37 PM CAMPGROUND MANAGER COMPLETE BLOOD COUNT (CBC) WITH DIFF Routine 12/01/2024 9:37 PM CAMPGROUND MANAGER POCT GLUCOSE Routine 12/01/2024 8:52 PM CAMPGROUND MANAGER POCT GLUCOSE Routine 12/01/2024 5:57 PM CAMPGROUND MANAGER XR RETROGRADE PYELOGRAM Routine 12/01/2024 3:03 PM CAMPGROUND MANAGER POCT GLUCOSE Routine 12/01/2024 3:00 PM CAMPGROUND MANAGER PATHOLOGY SURGICAL Routine 12/01/2024 2: 10 PM CAMPGROUND MANAGER LMA Routine 12/01/2024 2:05 PM CAMPGROUND MANAGER CYSTOSCOPY,INSERT URETERAL STENT 12/01/2024 1:31 PM CAMPGROUND MANAGER BILATERAL NEPHROLITHIASIS Special Needs Allergy: Many- see EPIC Hx: Diabetes, HTN 5' 3 126# CYSTOSCOPY,REMV CALCULUS,SIMPLE 12/01/2024 1:31 PM CAMPGROUND MANAGER BILATERAL NEPHROLITHIASIS Special Needs Allergy: Many- see EPIC Hx: Diabetes, HTN 5' 3 126# DIAG-RETROGRADE PYELOGRAM 12/01/2024 1:31 PM CAMPGROUND MANAGER BILATERAL NEPHROLITHIASIS Special Needs Allergy: Many- see EPIC Hx: Diabetes, HTN 5' 3 126# CYSTOURETHROSCOPY,U RETER CATHETER 12/01/2024 1:31 PM CAMPGROUND MANAGER BILATERAL NEPHROLITHIASIS Special Needs Allergy: Many- see EPIC Hx: Diabetes, HTN 5' 3 126# CYSTO/URETERO W/LITHOTRIPSY 12/01/2024 1:31 PM CAMPGROUND MANAGER BILATERAL NEPHROLITHIASIS Special Needs Allergy: Many- see EPIC Hx: Diabetes, HTN 5' 3 126# CYSTOSCOPY,INSERT URETERAL STENT 12/01/2024 1:31 PM CAMPGROUND MANAGER BILATERAL NEPHROLITHIASIS Special Needs Allergy: Many- see EPIC Hx: Diabetes, HTN 5' 3 126# CYSTOSCOPY,INSERT URETHRAL STENT 12/01/2024 1:31 PM CAMPGROUND MANAGER BILATERAL NEPHROLITHIASIS Special Needs Allergy: Many- see EPIC Hx: Diabetes, HTN 5' 3 126# CYSTO/URETERO/PYELO SCOPY, DX 12/01/2024 1:31 PM CAMPGROUND MANAGER BILATERAL NEPHROLITHIASIS Special Needs Allergy: Many- see EPIC Hx: Diabetes, HTN 5' 3 126# CYSTOURETHROSCOPY,U RETER CATHETER 12/01/2024 1:31 PM CAMPGROUND MANAGER BILATERAL NEPHROLITHIASIS Special Needs Allergy: Many- see [facility] Hx: Diabetes, HTN 5' 3 126# POCT GLUCOSE Routine 12/01/2024 11:[address] REFERENCE IMAGES FOR IMAGE IMPORT Routine 11/09/2024 12:19 PM CAMPGROUND MANAGER CULTURE, URINE Routine 11/09/2024 10:49 AM CAMPGROUND MANAGER UTI symptoms CULTURE, URINE Routine 2024 2:13 PM CAMPGROUND MANAGER UTI symptoms CULTURE, URINE Routine 10/30/2024 1:10 PM CAMPGROUND MANAGER UTI symptoms HEMOGLOBIN A1C W/ ESTIMATED GLUCOSE Routine 10/08/2024 5:55 AM CAMPGROUND MANAGER from Last 3 Months or Most Recently Relevant to Health Maintenance Results * CULTURE, URINE (12/25/2024 11:49 AM CAMPGROUND MANAGER) Only the most recent of5 resultswithin the time period is included. CULTURE RESULTS No growth final 12/26/2024 9:15 PM CAMPGROUND MANAGER [facility] Culture (Straight Catheter) Non-Phlebotomy Collection / Unknown 12/25/2024 11:49 AM CAMPGROUND MANAGER 12/25/2024 11:49 AM CAMPGROUND MANAGER us Zoe Lancaster MD MICROBIOLOGY - GENERAL ORDERAB LES Final Result [facility] [address] [facility] [facility] [place] [address], [place] * CT RENAL STONE STUDY (ABDOMEN AND PELVIS W/O CONTRAST) (12/15/2024 6:28 PM CAMPGROUND MANAGER) Anatomical Region Laterality Modality Abdomen N/A Computed Tomogra phy 12/20/2024 8:40 AM CAMPGROUND MANAGER Impressions 12/20/2024 8:43 AM CAMPGROUND MANAGER IMPRESSION: Bilateral double-J ureteral stents in place. [...] findings as above. Narrative 12/20/2024 8:43 AM CAMPGROUND MANAGER EXAM DESCRIPTION: CT RENAL STONE STUDY (ABDOMEN [...] Debi Perez M.D. TW: TW Report ID: [id number] Reading Location: [id number] Procedure Note Debi Perez MD - 12/20/2024 [...] Debi Perez M.D. TW: TW Report ID: [id number] Reading Location: [id number] IMPRESSION: Bilateral double-J ureteral stents in place. [...] evaluate additional findings. Additional findings as above. us Zoe Lancaster MD IM CT ORDERABLES Final Result * (ABNORMAL) POCT Glucose (12/04/2024 1:04 PM CAMPGROUND MANAGER) Only the most recent of15 resultswithin the time period is included. GLUCOSE,BEDSID E POCT 135(H) 70 - 99 mg/dL 12/04/2024 1:11 PM CAMPGROUND MANAGER [facility] Blood 12/04/2024 1:04 PM CAMPGROUND MANAGER 12/04/2024 1:11 PM CAMPGROUND MANAGER us None Provider POINT OF CARE TESTING Final Resu lt [facility] #[address] [place] [address] * (ABNORMAL) CBC with Auto Differential (12/04/2024 5:51 AM CAMPGROUND MANAGER) Only the most recent of4 resultswithin the time period is included. WBC 22.88(H) 4.00 - 12.00 10(3)/mcL 12/04/2024 6:24 AM [facility] RBC 3.54(L) 3.80 - 5.30 10(6)/mcL 12/04/2024 6:24 AM [facility] HEMOGLOBIN (HGB) 10.8(L) 12.0 - 15.8 g/dL 12/04/2024 6:24 AM [facility] HEMATOCRIT (HCT) 33.8(L) 36.0 - 47.0 % 12/04/2024 6:24 AM [facility] MCV 95.5 82.0 - 96.0 fL 12/04/2024 6:24 AM [facility] MCH 30.5 26.0 - 34.0 pg 12/04/2024 6:24 AM [facility] MCHC 32.0 31.0 - 36.0 g/dL 12/04/2024 6:24 AM [facility] PLATELET COUNT 191 140 - 440 10(3)/mcL 12/04/2024 6:24 AM [facility] RDW 16.0(H) 11.8 - 15.5 % 12/04/2024 6:24 AM [facility] MPV 11.2 9.7 - 12.4 fL 12/04/2024 6:24 AM [facility] NEUTROPHILS 79.6(H) 47.0 - 73.0 % 12/04/2024 6:24 AM [facility] LYMPHOCYTES 11.1(L) 18.0 - 42.0 % 12/04/2024 6:24 AM [facility] MONOCYTES 6.5 4.0 - 12.0 % 12/04/2024 6:24 AM [facility] EOSINOPHILS 2.3 0.0 - 5.0 % 12/04/2024 6:24 AM [facility] BASOPHILS 0.5 0.0 - 1.0 % 12/04/2024 6:24 AM [facility] ABSOLUTE NEUTROPHILS 18.21(H) 1.60 - 7.70 10(3)/[facility] 12/04/2024 6:24 AM [facility] ABSOLUTE LYMPHOCYTES 2.55 1.30 - 3.20 10(3)/[facility] 12/04/2024 6:24 AM [facility] ABSOLUTE MONOCYTES 1.48(H) 0.20 - 1.00 10(3)/[facility] 12/04/2024 6:24 AM [facility] ABSOLUTE EOSINOPHIL 0.53(H) 0.00 - 0.40 10(3)/[facility] 12/04/2024 6:24 AM [facility] ABSOLUTE BASOPHILS 0.11(H) 0.00 - 0.10 10(3)/[facility] 12/04/2024 6:24 AM [facility] NRBC PER 100 WBC 0 12/04/19 6:24 AM [facility] Blood Venipuncture / Unknown 12/04/2024 5:51 AM CAMPGROUND MANAGER 12/04/2024 6:20 AM [facility] us Breann Nice PARTY COORDINATOR, CASH MANAGEMENT CLERK HEMATOLOGY ORDERABLES Final Result [facility] #[address] [place] [address] * (ABNORMAL) BMP with Ca, Total (12/04/2024 5:51 AM [facility]) Only the most recent of3 resultswithin the time period is included. SODIUM 144 136 - 145 mmol/L 12/04/2024 6:38 AM [facility] POTASSIUM 3.6 3.5 - 5.1 mmol/L 12/04/2024 6:38 AM [facility] CHLORIDE 115(H) 98 - 107 mmol/L 12/04/2024 6:38 AM CAMPGROUND MANAGER [facility] CO2, VENOUS 22 22 - 30 mmol/L 12/04/2024 6:38 AM [facility] ANION GAP 10.6 <18.0 mmol/L 12/04/2024 6:38 AM [facility] GLUCOSE 134(H) 70 - 99 mg/dL 12/04/2024 6:38 AM [facility] BUN 17 10 - 20 mg/dL 12/04/2024 6:38 AM [facility] CREATININE, BLOOD 0.82 0.60 - 1.00 mg/dL 12/04/2024 6:38 AM [facility] BUN/CREATININE RATIO 21(H) 12 - 20 ratio 12/04/2024 6:38 AM [facility] CALCIUM 8.6(L) 8.7 - 10.5 mg/dL 12/04/2024 6:38 AM [facility] GFR, ESTIMATED >60 >=60 12/04/2024 6:38 AM [facility] Comment: Creatinine Clearance is the preferred criteria for selecting drug dose adjustments in renally impaired patients. The GFR is provided as additional pertinent clinical information. GFR is reported in mL/min/1.73 sq m. Calculation based on the Chronic Kidney Disease Epidemiology Collaboration (CKD- EPI) equation refit without adjustment for race. GFR, EST. >60 >=60 025 6:38 AM CAMPGROUND MANAGER [facility] GFR, EST. NONAFRICAN >60 >=60 12/04/2024 6:38 AM [facility] Blood Venipuncture / Unknown 12/04/2024 5:51 AM CAMPGROUND MANAGER 12/04/2024 6:20 AM CAMPGROUND MANAGER us Breann Nice APRN, [facility]ATA CHEMISTRY ORDERABLES Final Result [facility] [address] [place] [address] * RHYTHM STRIP (12/03/2024 12:00 AM CAMPGROUND MANAGER) Only the most recent of5 resultswithin the time period is included. 12/03/2024 us Provider Scan IMG ECG ORDERABLES Final Result RESULTING AGENCY * (ABNORMAL) URINALYSIS REFLEX IF INDICATED BY ABNORMAL RESULTS (12/02/2024 3:00 PM CAMPGROUND MANAGER) SPECIFIC GRAVITY 1.015 1.003 - 1.030 12/02/2024 3:25 PM CAMPGROUND MANAGER [facility] URINE PH 5.0 5.0 - 9.0 12/02/2024 3:25 PM CAMPGROUND MANAGER [facility] WBC ESTERASE 500 /uL(A) Negative 12/02/2024 3:25 PM CAMPGROUND MANAGER [facility] NITRITE Negative Negative 12/02/2024 3:25 PM CAMPGROUND MANAGER [facility] PROTEIN, RANDOM URINE 500 mg/dL(A) Negative 12/02/2024 3:25 PM CAMPGROUND MANAGER [facility] URINE GLUCOSE, QUAL Negative Negative 12/02/2024 3:25 PM CAMPGROUND MANAGER [facility] URINE KETONES 5 mg/dL(A) Negative 12/02/2024 3:25 PM CAMPGROUND MANAGER [facility] UROBILINOGEN Normal Normal mg/dL 12/02/2024 3:25 PM CAMPGROUND MANAGER [facility] URINE BLOOD 250 /uL(A) Negative alma delia/ul 12/02/2024 3:25 PM CAMPGROUND MANAGER [facility] URINALYSIS COLOR Brown 12/02/2024 3:25 PM CAMPGROUND MANAGER [facility] URINALYSIS CLARITY Very Cloudy 12/02/2024 3:25 PM CAMPGROUND MANAGER [facility] WBC (Urine) Packed(A) Negative, 0-5 /hpf 12/02/2024 3:25 PM CAMPGROUND MANAGER [facility] URINE RBC'S Packed(A) Negative, 0-2 /hpf 12/02/2024 3:25 PM CAMPGROUND MANAGER [facility] EPITHELIAL CELLS Occasional /lpf 12/02/2024 3:25 PM CAMPGROUND MANAGER [facility] BACTERIA, URINE Few(A) Negative /hpf 12/02/2024 3:25 PM CAMPGROUND MANAGER [facility] Urine URINE SPECIMEN COLLECTION, CLEAN CATCH / Unknown Non-Phlebotomy Collection / Unknown 12/02/2024 3:00 PM CAMPGROUND MANAGER 12/02/2024 3:03 PM CAMPGROUND MANAGER us Breann Nice PARTY COORDINATOR, CASH MANAGEMENT CLERK URINE ORDERABLES Capri l Result [facility] [address] [place] [address] * XR CHEST SINGLE VIEW PORTABLE (12/02/2024 2:47 AM CAMPGROUND MANAGER) Anatomical Region Laterality Modality Chest N/A Computed Radiogr aphy 12/02/2024 3:02 AM CAMPGROUND MANAGER Impressions 12/02/2024 3:04 AM CAMPGROUND MANAGER IMPRESSION: No acute abnormality identified within limits of low inspiratory volume portable technique. Narrative 12/02/2024 3:04 AM CAMPGROUND MANAGER EXAM DESCRIPTION: XR CHEST SINGLE VIEW PORTABLE [...] Scotty Perry M.D. AR: JENNIFER Report ID: [id number] Reading Location: [id number] Procedure Note Scotty Perry MD - 12/02/2024 [...] Scotty Perry M.D. AR: JENNIFER Report ID: [id number] Reading Location: [place] [address] IMPRESSION: No acute abnormality identified within limits of low inspiratory volume portable technique. Breann Nice PARTY COORDINATOR, CASH MANAGEMENT CLERK IMG DIAGNOSTIC ORDERA BLES Final Result * (ABNORMAL) Manual Differential (12/01/2024 9:37 PM CAMPGROUND MANAGER) BANDS % 13.0 % 12/01/2024 10:19 PM CAMPGROUND MANAGER [facility] NEUTROPHILS % 80.0(H) 47.0 - 73.0 % 12/01/2024 10:19 PM [facility] LYMPHOCYTES % 5.0(L) 18.0 - 42.0 % 12/01/2024 10:19 PM [facility] MONOCYTES % 2.0(L) 4.0 - 12.0 % 12/01/2024 10:19 PM [facility] NEUTROPHILS ABSOLUTE 6.26 1.60 - 7.70 10(3)/mcL 12/01/2024 10:19 PM [facility] LYMPHOCYTES ABSOLUTE 0.34(L) 1.30 - 3.20 10(3)/mcL 12/01/2024 10:19 PM [facility] MONOCYTES ABSOLUTE 0.13(L) 0.20 - 1.00 10(3)/mcL 12/01/2024 10:19 PM [facility] REACTIVE LYMPHOCYTES 4 12/01/2024 10:19 PM [facility] WBC MORPH STATUS Normal 12/01/19 10:19 PM [facility] RBC MORPH STATUS Normal 02/11/20 25 10:19 PM [facility] PLATELET STATUS Normal 10:19 PM [facility] Blood Venipuncture / Unknown 12/01/2024 9:37 PM CAMPGROUND MANAGER 12/01/2024 9:50 PM CAMPGROUND MANAGER us Breann Elva Nice PARTY COORDINATOR, CASH MANAGEMENT CLERK HEMATOLOGY ORDERABLES Final Result [facility] [place] [address] * (ABNORMAL) CMP (Comprehensive Metabolic Panel) (12/01/2024 9:37 PM CAMPGROUND MANAGER) SODIUM 143 136 - 145 mmol/L 12/01/2024 10:18 PM [facility] POTASSIUM 2.8(L) 3.5 - 5.1 mmol/L 12/01/2024 10:18 PM [facility] CHLORIDE 111(H) 98 - 107 mmol/L 12/01/2024 10:18 PM [facility] CO2, VENOUS 16(L) 22 - 30 mmol/L 12/01/2024 10:18 PM [facility] ANION GAP 18.8(H) <18.0 mmol/L 12/01/2024 10:18 PM [facility] GLUCOSE 112(H) 70 - 99 mg/dL 12/01/2024 10:18 PM [facility] BUN 28(H) 10 - 20 mg/dL 12/01/2024 10:18 PM [facility] CREATININE, BLOOD 1.10(H) 0.60 - 1.00 mg/dL 12/01/2024 10:18 PM [facility] BUN/CREATININE RATIO 25(H) 12 - 20 ratio 12/01/2024 10:18 PM [facility] TOTAL PROTEIN 6.0 6.0 - 8.0 g/dL 12/01/2024 10:18 PM [facility] ALBUMIN 3.4(L) 3.5 - 5.0 g/dL 12/01/2024 10:18 PM [facility] A/G RATIO 1.3 1.0 - 2.2 12/01/2024 10:18 PM [facility] CALCIUM 8.3(L) 8.7 - 10.5 mg/dL 12/01/2024 10:18 PM [facility] T BILI 0.6 0.2 - 1.2 mg/dL 12/01/2024 10:18 PM CAMPGROUND MANAGER [facility] SGOT (AST) 35 6 - 42 U/L 12/01/2024 10:18 PM [facility] SGPT (ALT) 20 6 - 55 U/L 12/01/2024 10:18 PM [facility] ALKALINE PHOSPHATASE 27(L) 40 - 150 U/L 12/01/2024 10:18 PM [facility] GFR, ESTIMATED 49(L) >=60 12/01/2024 10:18 PM [facility] Comment: Creatinine Clearance is the preferred criteria for selecting drug dose adjustments in renally impaired patients. The GFR is provided as additional pertinent clinical information. GFR is reported in mL/min/1.73 sq m. Calculation based on the Chronic Kidney Disease Epidemiology Collaboration (CKD- EPI) equation refit without adjustment for race. GFR, EST. 57(L) >=60 025 10:18 PM CAMPGROUND MANAGER [facility] GFR, EST. NONAFRICAN 47(L) >=60 12/01/2024 10:18 PM [facility] Blood Venipuncture / Unknown 12/01/2024 9:37 PM CAMPGROUND MANAGER 12/01/2024 9:50 PM CAMPGROUND MANAGER us Breann Nice PARTY COORDINATOR, CASH MANAGEMENT CLERK CHEMISTRY ORDERABLES Final Result [facility] [address] [place] [address] * XR RETROGRADE PYELOGRAM (12/01/2024 3:03 PM CAMPGROUND MANAGER) Zeo Lancaster MD IMG FLUOROSCOPY ORDERABLES Fin al Result * Pathology Surgical (12/01/2024 2:10 PM CAMPGROUND MANAGER) Case Report Surgical Pathology Report Case: [id number] Authorizing Provider: Zoe Horton MD Collected: 12/01/2024 02:10 PM Ordering Location: [facility] Received: 12/02/2024 08:33 AM [facility] Main OR Pathologist: Irene Etienne MD PhD Specimens: A) - Surgical Implant, RIGHT URETERAL STENT B) - Stone, RIGHT RENAL STONE C) - Stone, LEFT RENAL STONE 12/03/2024 8:25 AM CAMPGROUND MANAGER [facility] FINAL DIAGNOSIS A. Right ureteral stent, removal: - As described grossly. B. Calculus, right renal, removal: - Nephrolithiasis (gross examination only). C. Calculus, left renal, removal: - Nephrolithiasis (gross examination only). 12/03/2024 8:25 AM CAMPGROUND MANAGER [facility] at 0825 CAMPGROUND MANAGER Pre-Operative Diagnosis BILATERAL NEPHROLITHIASIS 12/03/2024 8:25 AM CAMPGROUND MANAGER [facility] Gross Description A. RIGHT URETERAL STENT [...] gross dictation only. KS/sb 12/03/2024 8:25 AM CAMPGROUND MANAGER [facility] Other SURGICAL TISSUE IMPLANT / Unknown 12/01/2024 2:10 PM CAMPGROUND MANAGER 12/02/2024 8:33 AM CAMPGROUND MANAGER Specimen of unknown material (specimen) STONE - BODY MATERIAL / Unknown 12/01/2024 2:12 PM CAMPGROUND MANAGER 12/02/2024 8:33 AM CAMPGROUND MANAGER Specimen of unknown material (specimen) STONE - BODY MATERIAL / Unknown 12/01/2024 2:40 PM CAMPGROUND MANAGER 12/02/2024 8:33 AM CAMPGROUND MANAGER us Zoe Lancaster MD PATHOLOGY/CYTOLOGY ORDERABLES Final Result [facility] [address] [place] [address] * LMA (12/01/2024 2:05 PM CAMPGROUND MANAGER) Narrative Rudy Chavarria MD - 12/01/2024 2:05 PM CAMPGROUND MANAGER Rudy Chavarria MD 12/01/2024 2:05 PM LMA [...] IMAGES FOR IMAGE IMPORT (11/09/2024 12:19 PM CAMPGROUND MANAGER) us Not On File Provider IMG CT ORDERABLES Final Res ult * Hemoglobin A1C w/ Estimated Glucose (10/08/2024 5:55 AM CAMPGROUND MANAGER) HGB-A1C 5.7 4.0 - 6.0 % 10/08/2024 6:22 AM CAMPGROUND MANAGER [facility] Est Average Glucose 116.9 mg/dL 10/08/2024 6:22 AM CAMPGROUND MANAGER [facility] Blood Venipuncture / Unknown 10/08/2024 5:55 AM CAMPGROUND MANAGER 10/08/2024 6:03 AM CAMPGROUND MANAGER Narrative [facility] - 10/08/2024 6:22 AM CAMPGROUND MANAGER HEMOGLOBIN A1C: DIABETIC PATIENTS: WELL-CONTROLLED: 6.2 - 7.0 INTERMEDIATE WELL-CONTROLLED: 7.0 - 9.0 POORLY-CONTROLLED: >9.0 Bebe Mckeon MD CHEMISTRY ORDERABLES Final Re sult [facility] [address] [place] [address] from Last 3 Months or Most Recently Relevant to Health Maintenance Insurance MEDICARE COMMERCIAL GENERIC MEDIC[place] [id number] Get In GENERIC , [address] [place], [place] Advance Directives * No CPR-Selective Treatment [...] measures to stabilize the patient. Care Teams Caregivers Homecare Relationship Specialty Start Date End Date Yefri Torres MD [address] [facility] [address] [place] [address] PCP - General Family Medicine 12/25/24 Zoe Horton MD #[address] [address] Consulting Physician Urology 11/03/24
--- OUTSIDE RECORDS SUMMARY | 2025-01-08 00:10 | XMS_ITS | Clinical Summary ---
Author Organization [facility] Address [address] [place] [address] Care Team Providers Care Hand Molder And Caster Name Role Phone Unavailable Primary Care Provider [...] disease, without long-term current use of insulin ([facility]/HCC HHS/HCC),Stage 3b chronic kidney disease ([facility]/HCC),Atheroscl erosis of coronary artery of [place] heart without angina pectoris, unspecified vessel or lesion type TAKE 1 TABLET NIGHTLY AT BEDTIME 90 tablet 3 08/13/20 24 Active metFORMIN (GLUCOPHAGE) 500 MG tabletIndications:T ype 2 diabetes mellitus ([facility] HHS/HCC) TAKE 1 TABLET DAILY WITH BREAKFAST [...] disease, without long-term current use of insulin ([facility]) 08/10/2022 Stage 3b chronic kidney disease 02/22/2022 Age-related osteoporosis wit hout current pathological fracture 06/15/2021 Atherosclerosis of coronary artery 07/02/2017 Mild intermittent asthma without complication ([facility] /[facility]) 01/26/2016 Loss of height 11/01/2014 Vitamin D deficiency 11/01/2014 Essential hypertension 05/20/2014 Mixed hyperlipidemia 05/20/2014 Resolved Problems Problem Noted Date Diagnosed Date Resolved Date UTI (urinary tract infection) 07/28/2023 12/30/2023 Type 2 diabetes mellitus ([facility]) 05/25/2014 08/10/2022 Encounter for preventive health examination 05/19/2014 07/01/2020 Encounters Date Type Department Care Team Description 12/22/2024 Telephone [facility] [address] [place] [address] Anderson Valencia, DO Information 12/22/2024 Orders Only [facility] [address] [place] [address] Deanna Alcocer LPN 12/07/2024 Telephone [facility] [address] [place] [address] Anderson Valencia, DO Information 11/17/2024 Scan [facility] Scanned, [facility] 11/09/2024 Scan [facility] Scanned, [facility] Lab (SCAN) 11/09/2024 Orders Only [facility] [address] [place] [address] Anderson Valencia DO 2024 Scan [facility] SRVCS Scanned, [facility] (SCAN) 10/30/2024 Scan [facility] SRVCS Scanned, [facility] Lab (SCAN) 10/12/2024 Telephone [facility] [address] [place] [address] Anderson Valencia, DO Information (Hospital course/) from [...] place to sleep or slept in a snf (including now)? No 07/28/2023 Comments No Sex and Gender Information Value Date Recorded Sex Assigned at Not on file Legal Sex Female 6:46 PM CDT Gender Identity Not on file Sexual Orientation Not on file Last Filed Vital Signs Vital Sign Reading Time Taken Comments Blood Pressure 128/58 10/06/2024 6:30 AM FLOOR INSPECTOR Pulse 76 10/06/2024 8:00 AM FLOOR INSPECTOR Temperature 36.6 C (97.9 F) 10/06/2024 5:54 AM FLOOR INSPECTOR Respiratory Rate 15 10/06/2024 8:00 AM FLOOR INSPECTOR Oxygen Saturation 97% 10/06/2024 8:00 AM FLOOR INSPECTOR Inhaled Oxygen Concentration - - Weight 53.5 kg (118 lb) 10/05/2024 7:25 PM FLOOR INSPECTOR Height 162.6 cm (5' 4 ) 10/05/2024 7:25 PM FLOOR INSPECTOR Body Mass Index 20.25 10/05/2024 7:25 PM FLOOR INSPECTOR Plan of Treatment Upcoming Encounters Date Type Department Care Team (Late st Contact Info) Description 01/15/2025 10:00 AM CDT Appointment [facility] [address] [place] [address] Anderson Valencia, DO [address] [place] [address] Health Maintenance Due Date Last Done Comments Zoster Vaccines (1 of 2) 1990 Annual Medicare Wellness Visit 04/21/2022 04/20/2021 COVID-19 Vaccine ( season) 2024 07/25/2023, 08/28/2022, 09/06/2021, Additional history exists Influenza Adult (#1) 2024 08/19/2023, 08/10/2022, 06/26/2020, Additional history exists PHQ-2 (Physician Drewsey) 10/21/2024 07/01/2024 ASCVD LDL 01/05/2025 01/06/2024, 11/21, [...] this topic Medical Devices Implanted Type Area Macroeconomics Professor Device Identifier Shelf Expiration Date Model / Serial / Lot Iol Sonny Acu0t0 - [id number] Implanted:Qty: 1 on 03/02/2022 by Troy Garcia MD at [facility] Eye Left: Eye [employer] [id number] 05/29/2024 ACU0T0 / [id number] / [id number] Iol Sonny Acu0t0 - [id number] Implanted:Qty: 1 on 03/16/2022 by Troy Garcia MD at [facility] Eye Right: Eye [employer] [id number] 05/27/2024 ACU0T0 / [id number] / Procedures Procedure Name Priority Date/Time [...] Essential hypertension Atherosclerosis of coronary artery of [place] heart without angina pectoris, unspecified vessel or [...] 5.9(H) <5.7 % 06/08/2024 2:38 PM CDT [facility] ESTIMATED AVG GLUCOSE 123(H) 74 - 114 MG/DL 06/08/2024 2:38 PM CDT [facility] 06/08/2024 11:0 0 AM CDT Anderson Valencia DO LABORATORY Final R esult [facility] [address] [place] [address], * (ABNORMAL) LIPID PANEL (01/06/2024 6:50 AM CDT) CHOLESTEROL 158 0 - 200 MG/DL 01/06/2024 7:23 AM CDT [facility] TRIGLYCERIDES 71 <150 MG/DL 01/06/2024 7:23 AM CDT [facility] HDL 61(H) 40 - 60 MG/DL 01/06/2024 7:23 AM CDT [facility] LDL-C 83 <130 MG/DL 01/06/2024 7:23 AM CDT [facility] VLDL CALCULATION 14 MG/DL 01/06/20 7:23 AM CDT [facility] [place] [facility] Comment:REFERENCE RANGE NOT ESTABLISHED CHOL/HDL RATIO 2.6 01/06/2024 7:23 AM CDT [facility] [place] [facility] Comment:REFERENCE RANGE NOT ESTABLISHED LDL/HDL 1.4 01/06/2024 7:23 AM CDT [facility] Comment:REFERENCE RANGE NOT ESTABLISHED NON HDL CHOLESTEROL 97 MG/DL 01/06/2024 7:23 AM CDT [facility] 01/06/2024 6:50 AM CDT Anderson Valencia DO LABORATORY Final R esult Performing Organization Address City/[facility]/ZIP Co de Phone Number [facility] [place] [facility] [address] [place] [address], * DIABETIC RETINOPATHY EXAM (NEGATIVE) (12/31/2023) us Doc [facility] Scanned SCANNING Final Resu lt Performing Organization Address City/[facility]/ZIP Co de Phone Number [facility] ONBASE from Last 3 Months or Most Recently Relevant to Health Maintenance Insurance MEDICARE [facility] Advance Directives * Full Code (Latest Code Status on File) Date Activated Date Inactivated Comments 07/28/2023 5:14 PM 07/29/2023 6:54 PM
--- OUTSIDE RECORDS SUMMARY | 2025-01-08 00:10 | XMS_ITS | Continuity of Care Document ---
Author Organization [facility] Address [address] [place] [address] Phone Care Team Providers Care Director Of Critical Care Name Role Phone Troy Garcia MD Unavailable [...] Diagnoses Date Provider Providers Copied on Encounter [facility], [facility], [address] [place] [address], [id number] , [place] tel:[phone] [facility] No Information 2 Jose Simmons. [address] [place] [address], [id number] , [place]. tel:[phone] Referring Provider: Troy Stevenson, [address] [place] [address], [id number] . tel:[phone] [facility], [facility], [address] [place] [address], [id number] , [place] tel: [phone] [facility] No Information 2 Jose Simmons. [address] [place] [address], [id number] , . tel: [phone] Referring Provider: Troy Stevenson, [address] [place] [address], [id number] . tel:[phone] [facility], [facility], [address] [place] [address], [id number] , tel:[phone] [facility] No Information 2 Jose Simmons. [address] [place] [address], [id number] , [place]. tel: [phone] Referring Provider: Troy Stevenson, [address] [place] [address], [phone] . tel:[phone] [facility], [address] [place] [address], [id number] , tel: [phone] [facility] blurry vision (chief complaint)OPT OS prior to RML hypertensive retinopathy (chief complaint)hemant rry vision (chief complaint)OPT OS prior to RML hypertensive retinopathy (chief complaint) Hypertensive retinopathy, bilateralCombin ed forms of age-related cataract, bilateralDrusen (degenerative) of macula, bilateralType 2 diabetes mellitus without complicationsLo ng term (current) use of oral hypoglycemic drugsRegular astigmatism, bilateralPresby opiaRefractive amblyopia, left eye Apr-0 2 Jose Simmons. [address] [place] [address], [id number] , [place]. tel: [phone] Referring Provider: Troy Stevenson, [address] [place] [address], [id number] . tel:[phone] [facility], [facility], [address] [place] [address], [id number] , tel:[phone] [facility] No Information 2 Jose Simmons. [address] [place] [address], [id number] , [place]. tel: [phone] Family History Family Member Type Diagnosis Age At Onset Problem No family history of Macular degeneration Problem No family history of Diabete s mellitus Problem No family history of Glaucom a Sister Problem cataract Mother Problem hypertension Sister Problem hypertension Payers Payer name Insurance type Covered republican ID Authoriza tierich(s) Medicare [place] MB [id number] APWU HP Secondary CI [id number] Social History Type Description Quantity Date Captured [...]
--- OUTSIDE RECORDS SUMMARY | 2025-01-08 00:10 | XMS_ITS | Encounter Summary ---
Author Organization [facility] Address [address] [place] [address] Phone Care Team Providers Care Brand Sales Consultant Name Role Phone RoseAnderson sanchez Primary Care Pro vider Zoe Horton MD Unavailable [phone] Yefri Torres MD Primary Care Provider Encounter Details Date Type Department Care Team (Late st Contact Info) Description 11/05/2024 Telephone [facility] [address] [place] [address] Zoe Horton MD [address] [address] Social History Tobacco Use Types Packs/Day Years Used Date Smoking Tobacco: Never Smokeless Tobacco: Never Alcohol Use Standard Drinks/Week Comments Never 0 (1 standard drink = 0.6 oz pur e alcohol) [facility] Utilities Answer Date Recorded In the past 12 months has [employer] electric, gas, oil, or water company threatened [...] often do you attend chur ch or buddhism services? More than 4 times per year 10/06/2024 Do you belong to any clubs o r organizations such as episcopalian groups, unions, fraternal or athletic groups, or [...] heating? Not hard at all 10/06/2024 [facility] - Occupational [...] were you homeless or living in a senior care (including now)? No 10/06/2024 Sexually Active Control [...] PM CST Please see Dr. Amador message EATION INSTRUCTOR * Telephone Encounter - Shirin Mims - 11/10/2024 10:09 AM CST Pts disk was given to radiology here at [facility] today. She also left a repeat cath sample. EATION INSTRUCTOR * Telephone Encounter - Shirin Mims - 11/09/2024 11:32 AM CST Pts disk was given to radiology here at [facility] today. She also left a repeat cath sample. EATION INSTRUCTOR * Telephone Encounter - Shirin Mims - 11/06/2024 12:16 PM CST Pt is to come in Saturday for repeat sample. EATION INSTRUCTOR * Telephone Encounter - Shirin Mims - 11/06/2024 12:13 PM CST Lm for pt to call back. EATION INSTRUCTOR * Telephone Encounter - Shirin Mims - 11/06/2024 9:48 AM CST Urine culture not resulted yet but shows contamination, which was done by cath. Pts daughter is working on getting Ct scan on CD. Pts daughter wanting to know what they should do about contaminated urine. Pt is not having any sx at this time. EATION INSTRUCTOR * Telephone Encounter - Zoe Horton MD - 11/05/2024 4:39 PM CST Please see the following for this patient: Scheduled for: Cystoscopy, bilateral ureteroscopy, lithotripsy, stent. She had a CT scan done at an outside facility, can you please have them bring a CD with the imagingto me as soon as possible. EATION INSTRUCTOR documented in this encounter Plan of Treatment Upcoming Encounters Date Type Department Care Team (Latest Contact Info) Description 02/09/2025 12:10 PM CDT [facility] [address] [place] [address] Zoe Horton MD #[address] [address] 02/09/2025 12:10 PM CDT - 02/09/2025 1:40 PM CDT [facility] [address] [place] [address] Zoe Horton MD #[address] [address] RIGHT EXTRACORPOREAL SHOCKWAVE LITHOTRIPSY, ALFREDA/MIDWEST STONE CONF FOR 02/09 AT 1200 - JS Scheduled Procedures Name Priority Associated Diagnoses Date/Ti me ESWL BILATERAL NEPHROLITHIASIS 02/09/2025 12:10 PM CDT documented as of this encounter Visit Diagnoses Not on filedocumented in this encounter Care Teams Brand Sales Consultant Relationship Specialty Start Date End Date Anderson Valencia DO [address] [place] [id number] PCP - General Family Medicine 12/31/19 12/24/24 Yefri Torres MD [address] [place] [address] PCP - General Family Medicine 12/25/24 [facility]orton MD [facility] [address] [address] Consulting Physician Urology 11/03/24 documented as of this encounter
--- OUTSIDE RECORDS SUMMARY | 2025-01-08 00:10 | XMS_ITS | Encounter Summary ---
Author Organization [facility] Address [address] [place] [address] Phone Care Team Providers Care Manager Foreign Name Role Phone Anderson Valencia Primary Care Pro vider Zoe Horton MD Unavailable [phone] Yefri Torres MD Primary Care Provider Encounter Details Date Type Department Care Team (Late st Contact Info) Description 10/06/2024 Telephone [facility] [address] [place] [address] Zoe Horton MD [address] [address] Social History Tobacco Use Types Packs/Day Years Used Date Smoking Tobacco: Never Assessed [facility] Utilities Answer Date Recorded In the past 12 months has [facility] electric, gas, oil, or water company [...] often do you attend chur ch or religion services? More than 4 times per year 10/06/2024 Do you belong to any clubs o r organizations such as denominational groups, unions, fraternal or athletic groups, or [...] and heating? Not hard at all 10/06/2024 [facility] - Occupational [...] any time in the past 12 m [facility], were you homeless or living in a longterm (including now)? No 10/06/2024 Comments No Sex [...] Telephone Encounter - Shirin Mims - 10/23/2024 3:07 PM CST Pt scheduled on 10-30-2024 D MARKETING SPECIALIST * Telephone Encounter - Shirin Mims - 10/23/2024 9:34 AM CST Unable to reach this pt. Left 3 voice mails and mailed letter. D MARKETING SPECIALIST * Telephone Encounter - Shirin Mims - 10/19/2024 11:06 AM CST Left message/ Mailed letter D MARKETING SPECIALIST * Telephone Encounter - Shirin Mims - 10/12/2024 2:55 PM CST Message left for pt to call back. D MARKETING SPECIALIST * Telephone Encounter - Shirin Mims - 10/08/2024 9:42 AM CST Left message for pt to call back. D MARKETING SPECIALIST * Telephone Encounter - Zoe Horton MD - 10/06/2024 3:46 PM CST OV in 2 weeks please D MARKETING SPECIALIST documented in this encounter Plan of Treatment Upcoming Encounters Date Type Department Care Team (Latest Contact Info) Description 02/09/2025 12:10 PM CDT [facility] [address] [place] [address] Zoe Horton MD #[address] [address] 02/09/2025 12:10 PM CDT - 02/09/2025 1:40 PM CDT [facility] [address] [place] [address] Zoe Horton MD #[address] [address] RIGHT EXTRACORPOREAL SHOCKWAVE LITHOTRIPSY, ALFREDA/MIDWEST STONE CONF FOR 02/09 AT 1200 - JS Scheduled Procedures Name Priority Associated Diagnoses Date/Ti me ESWL BILATERAL NEPHROLITHIASIS 02/09/2025 12:10 PM CDT documented as of this encounter Visit Diagnoses Not on filedocumented in this encounter Care Teams Manager Foreign Relationship Specialty Start Date End Date Anderson Valencia DO [address] [place] [address] PCP - General Family Medicine 12/31/19 12/24/24 Yefri Torres MD [address] [place] [address] PCP - General Family Medicine 12/25/24 Zoe Horton MD #[address] [address] Consulting Physician Urology 11/03/24 documented as of this encounter
[2025-01-08] MEDS: ONDANSETRON INJ 4 MG/2 ML VIAL IV PUSH (00:46)
[2025-01-08] MEDS: SODIUM CHLORIDE 0.9% IV 1,000 ML 999 ML IV CONT (00:46)
--- NOTE | 2025-01-08 00:55 | ED.GENADULT ---
HPI - General Adult General Chief complaint: Urogenital-Female Stated complaint: Kidney stone, N/V-has Stents Time Seen by Provider: 01/08/25 00:02 History of Present Illness HPI narrative: Patient a 84-year-old female who presents emergency department with chief complaint of urinary symptoms. The patient has prior history of kidney stones reports that she has stone that she is scheduled had a lithotripsy done all in in January the patient states that she started having burning with urination and has been having some nausea as well the patient reports not really been eating and drinking like she normally does. Related Data Home Medications ?Medication ?Instructions ?Recorded ?Confirmed ?Last Taken ?Type albuterol sulfate 90 mcg/actuation 2 inh inhalation Q4H PRN unknown 10/09/24 12/23/24 Unknown History breath activated powder inhaler,sensor (Proair Digihaler) fenofibric acid (choline) 135 mg 135 mg PO QHS 10/09/24 12/23/24 Unknown History capsule,delayed release metformin 500 mg tablet 250 mg PO DAILY 10/09/24 12/23/24 12/04/24 History triamterene 37.5 1 cap PO QAM 10/09/24 12/23/24 12/04/24 History mg-hydrochlorothiazide 25 mg capsule acetaminophen 325 mg tablet 650 mg PO Q4H PRN Mild Pain (1-3) 12/07/24 12/23/24 12/02/24 History Or Fever vit 1 tablet PO DAILY 12/07/24 12/23/24 Unknown History [id number] 500 mg-50 mg-25 mg-40 mg tablet (Bioflex) aspirin 81 mg tablet,delayed 81 mg PO DAILY 12/23/24 12/23/24 Unknown History release (Adult Low Dose Aspirin) Allergies Allergy/AdvReac Type Severity Reaction Status Date / Time codeine Allergy Unknown Unknown Verified 01/07/25 19:24 colesevelam Allergy Unknown Unknown Verified 01/07/25 19:24 ezetimibe Allergy Unknown Unknown Verified 01/07/25 19:24 iodine Allergy Unknown Unknown Verified 01/07/25 19:24 meperidine Allergy Unknown Unknown Verified 01/07/25 19:24 scopolamine Allergy Unknown Unknown Verified 01/07/25 19:24 ezetimibe-simastatin Allergy Unknown Unknown Uncoded 01/07/25 19:24 sulfa antibiotics Allergy Unknown Unknown Uncoded 01/07/25 19:24 Review of Systems Review of Systems: A 10 system review of systems was completed on the patient and is negative except for what is stated in the HPI. Nursing and ancillary documentation was reviewed. [facility] Past Medical History Medical History GERD (gastroesophageal reflux disease) HLD (hyperlipidemia) Type 2 diabetes mellitus HTN (hypertension) Social History Social History Smoking status: Never smoker Second hand tobacco smoke exposure: No Alcohol intake: never Substance use: never Substance use type: does not use Do You Feel Safe in your Home?: Yes Lack of Transportation: No Lack of Food: Never True Current Housing: I Have Housing Concerned About Future Housing: No Difficulty Paying Gas/Electric Bills: No Difficulty Paying for Meds: No Currently Unemployed: YES Education: High School Diploma/GED Difficulty w/ Childcare or Family Care: No Living arrangements: with family Occupation/Education: retired Gender identity (if verbalized by the patient): Female Sexual Orientation (if Verbalized by the Patient): Straight or Heterosexual Spiritual care concerns: No Exam Narrative: GENERAL: Well-appearing, well-nourished, and in no acute distress. HEAD: Normocephalic, atraumatic. EYES: PERRLA and EOMI. ENT: Nares clear, no rhinorrhea or epistaxis. Mucous membranes moist. NECK: Supple. CHEST: Clear to auscultation. No respiratory distress. HEART: Regular rate and rhythm. No murmur heard. Normal peripheral pulses. ABDOMEN: Soft, nontender, nondistended, normal active bowel sounds. EXTREMITIES: Normal range of motion. No edema. SKIN: Warm, dry, no rash. NEURO: No focal deficits. Alert and oriented x3. PSYCH: Normal mood and affect. Course Vital Signs Vital signs: Vital Signs Temperature 36.8 C 01/07/25 19:18 Pulse Rate 88 01/07/25 19:18 Respiratory Rate 18 01/07/25 19:18 Blood Pressure 142/80 H 01/07/25 19:18 Pulse Oximetry 98 01/07/25 19:18 Oxygen Delivery Room Air 01/07/25 19:18 Temperature 36.8 C 01/07/25 19:18 Pulse Rate 87 01/08/25 03:00 Respiratory Rate 17 01/08/25 03:00 Blood Pressure 135/53 L 01/08/25 03:00 Pulse Oximetry 97 01/08/25 03:00 Oxygen Delivery Room Air 01/07/25 19:18 Medical Decision Making MDM Narrative Medical decision making narrative: Differential diagnosis includes UTI, dehydration, urinary obstruction CT scan the abdomen pelvis was obtained showed no obstructing stones stents were in place Patient did appear to be somewhat dry has been having nausea vomiting patient also has 16-20 white blood cells 2+ leukocyte esterase patient was started on Rocephin and the case will be discussed with the hospitalist for admission Vital Signs Vital Signs: Vital Signs Temperature 36.8 C 01/07/25 19:18 Pulse Rate 88 01/07/25 19:18 Respiratory Rate 18 01/07/25 19:18 Blood Pressure 142/80 H 01/07/25 19:18 Pulse Oximetry 98 01/07/25 19:18 Oxygen Delivery Room Air 01/07/25 19:18 Temperature 36.8 C 01/07/25 19:18 Pulse Rate 87 01/08/25 03:00 Respiratory Rate 17 01/08/25 03:00 Blood Pressure 135/53 L 01/08/25 03:00 Pulse Oximetry 97 01/08/25 03:00 Oxygen Delivery Room Air 01/07/25 19:18 Lab Data 01/07/25 23:22 01/07/25 23:22 Labs: Lab Results 01/07/25 01/07/25 01/08/25 Range/Units 20:13 23:22 03:30 WBC 14.5 H (4.5-10.0) K/mm3 RBC 4.12 L (4.2-5.4) M/mm3 Hgb 12.5 (12.0-15.0) g/dL Hct 39.5 (37.0-47.0) % MCV 95.9 (80-100) fl MCH 30.3 (26-34) pg MCHC 31.6 L (32-36) g/dl RDW 15.3 H (11.5-14.5) % Plt Count 218 (150-375) k/mm3 MPV 10.4 (7.4-10.4) fl Immature Gran % (Auto) 0.4 (0-0.5) % Neut % (Auto) 93.4 H (45.5-73.1) % Lymph % (Auto) 2.1 L (18.3-44.2) % Bullitt % (Auto) 3.6 (2.6-8.5) % Eos % (Auto) 0.3 (0-4.4) % Baso % (Auto) 0.2 (0.2-1.2) % Lymph # (Auto) 0.31 L (0.9-3.2) K/mm3 Bullitt # (Auto) 0.5 (0.1-0.6) K/mm3 Eos # (Auto) 0.0 (0-0.3) K/mm3 Baso # (Auto) 0.0 (0.0-0.1) K/mm3 Abs Immat Gran (auto) 0.06 H (0.00-0.031) K/mm3 Absolute Neuts (auto) 13.6 H (1.3-6.7) K/mm3 Absolute Nucleated RBC 0.000 (0.0-0.012) K/mm3 Band Neutrophils % 0 (0-6) % Nucleated RBC % 0.0 (0.0-0.2) % Platelet Estimate Adequate (Adequate) Hypochromasia 1+ Anisocytosis 1+ Schistocytes None seen Sodium 141 (137-145) mmol/L Potassium 3.8 (3.4-5.0) mmol/L Chloride 104 (98-107) mmol/L Carbon Dioxide 20 L (22-30) mmol/L Anion Gap 17 H (4-12) mmol/L BUN 58 H D (7-17) mg/dL Creatinine 1.12 H (0.7-1.0) mg/dL Estim Creat Clear Calc 25 ml/min Estimated GFR 46 L (59 - ) Glucose 178 H (65-110) mg/dL POC Capillary Glucose 191 H (65-105) mg/dl Calcium 9.2 (8.4-10.2) mg/dL Total Bilirubin 0.5 (0.2-1.3) mg/dL AST 30 (14-36) U/L ALT 26 (6-35) U/L Alkaline Phosphatase 37 L (38-126) U/L Total Protein 7.0 (6.3-8.2) g/dL Albumin 4.2 (3.5-5.1) g/dL Urine Color Yellow (Yellow) Urine Appearance Cloudy H (Clear) Urine pH 5.0 (5.0-9.0) Ur Specific Alliance 1.020 (1.001-1.035) Urine Protein 2+ H (Negative) mg/dL Urine Glucose (UA) Negative (Negative) mg/dL Urine Ketones Trace H (Negative) mg/dL Ur Blood (Man) 3+ H (Negative) Urine Nitrate Negative (Negative) Urine Bilirubin Negative (Negative) Urine Urobilinogen 0.2 (<2.0) mg/dL Leukocyte Esterase Rfl 2+ H (Negative) BALJEET/UL Urine RBC 6-10 H (0-2) /hpf Urine WBC 16-20 H (0-3) /hpf Urine Mucus Present /lpf Discharge Plan Discharge Clinical Impression: Acute UTI, Acute dehydration, Nausea and vomiting Patient Disposition: Still a Patient Condition: Stable Patient Language: Syriac Prescriptions: No Action aspirin [Adult Low Dose Aspirin] 81 mg tablet,delayed release (DR/EC) 81 mg PO DAILY Bioflex [id number] mg tablet 1 tablet PO DAILY acetaminophen 325 mg Tablet 650 mg PO Q4H PRN (Reason: Mild Pain (1-3) Or Fever) aspirin [Children's Aspirin] 81 mg Tablet,Chewable 81 mg PO DAILY Qty: 30 0RF nifedipine [Procardia XL] 30 mg Tablet Extended Release 24hr 60 mg PO DAILY 30 Days Qty: 60 0RF pantoprazole 40 mg Tablet,Delayed Release (Dr/Ec) 40 mg PO QAM PRN (Reason: Abdominal Cramping) 30 Days Qty: 30 0RF metoprolol succinate [Toprol XL] 25 mg Tablet Extended Release 24 Hr 25 mg PO DAILY 30 Days Qty: 30 0RF fenofibric acid (choline) 135 mg capsule,delayed release(DR/EC) 135 mg PO QHS triamterene-hydrochlorothiazid 37.5-25 mg capsule 1 cap PO QAM metformin 500 mg tablet 250 mg PO DAILY Proair Digihaler 90 mcg/actuation aero powdr breath act w/sensor 2 inh inhalation Q4H PRN (Reason: unknown) polyethylene glycol 3350 [Miralax] 17 gram Powder In Packet 17 g PO QAM Qty: 30 0RF pravastatin 20 mg tablet 20 mg PO HS Qty: 30 0RF diclofenac sodium [Voltaren Arthritis Pain] 1 % gel 4 g topical QID Qty: 4 0RF Rx Instructions: apply to single knee, ankle, foot; for foot includes sole/toes/top of foot cholecalciferol (vitamin D3) 50 mcg (2,000 unit) capsule 50 mcg PO DAILY Qty: 30 0RF Follow-up/Referrals: Yefri Torres MD [Primary Care Provider] - Time of Disposition: 04:58
[2025-01-08 03:54] LABS: Add Urine Microscopic? YES; Appearance Urine Cloudy (Clear); Bilirubin Urine Negative (Negative); Blood Urine 3+ (Negative); Color Urine Yellow (Yellow); Glucose Urine UA Negative (Negative); Ketones Urine Trace mg/dL (Negative); Leukocyte Esterase Ur 2+ LEU/UL (Negative); Nitrate Urine Negative (Negative); Protein Urine 2+ mg/dL (Negative); Urobilinogen Urine 0.2 mg/dL (<2.0)
[2025-01-08 04:08] LABS: Mucus Urine Present /lpf; WBC Urine 16-20 /hpf (0-3)
--- NOTE | 2025-01-08 05:44 | ADMGEN ---
This patient, Lucero Lopez, was admitted to Medical Room 250-01. Patient/family oriented to hospital policies and general routines including ID bracelet, bed and alarms, visiting hours, pain management, procedures, bathroom and other care routines, personal items, smoking policy, room service/diet, and visiting hours. Information on how to activate the Rapid Response Team has been discussed. Patient/Family are encouraged to report perceived risks to care and to ask questions if they do not understand what they are told or what they should do.
[2025-01-08] MEDS: SODIUM CHLORIDE 0.9% IV 1,000 ML 75 ML IV CONT ×2 (05:45→20:37)
--- NOTE | 2025-01-08 06:54 | PM.IMHP ---
H&P: HPI History of Present Illness Date/Time: 01/08/25 06:54 Chief Complaint: urinary symptoms Narrative: 84 year old female with past medical history of hypertension, hyperlipidemia, diabetes mellitus, and gerd presents to the hospital for nausea and vomiting. Per patient she had chicken with gravy and string beans for lunch yesterday after alevism. She states the string beans were questionable however she ate them anyway. Approximately 1 hour later she had perfuse vomiting and was unable to keep down food or fluids. She denies hematemesis or associated diarrhea. Patient is no longer endorsing nausea or vomiting at time of assessment. She is tolerating her diet well. Patient was recently admitted in 09/2024 to an outside facility for obstructing nephrolithiasis with hydronephrosis/pyelonephrosis. She underwent a cystourethroscopy, stent placement, and right retrograde pyelogram with intraoperative fluoroscopic interpretation at that time and has a scheduled lithotripsy in January. She states that about 1 week ago her urine turned black and she was concerned for recurrence of infection and worsening stones. The abnormal urine resolved within the day though and she did not pursue further treatment. Patient has no urinary symptoms denying dysuria, burning sensation, hematuria, inability to completely void and increased frequency/urgency. Patient has no other complaints denying chest pain, shortness a breath, palpitations. Discussed code status with patient and she states that she wishes to remain full code at this time. ED workup: Vital signs stable. CBC with WBC 14.5, H/H 12.5/39.5, and PLT 218. CMP with Na 141, K 3.8. BUN/Cr 58/1.12 with GFR 46. Glucose 178. Calcium 9.2. LFTs WNL. Urinalysis cloudy appearance with 2+ protein, trace ketones, 3+ blood, 2+ leukocytes, 6-10 RBC, 16-20 WBC. Urine culture pending. CT abdomen/pelvis showing no acute abnormality, bilateral ureteral stents without hydronephrosis and probable small nonobstructing renal stones, and 5 mm left lower lobe pulmonary nodule. Review of Systems Review of Systems: All systems reviewed & are unremarkable except as noted in HPI and below PMFSH Past Medical History Medical History (Updated 01/08/25 @ 15:07 by Hayley Hamilton PA-C) GERD (gastroesophageal reflux disease) HLD (hyperlipidemia) Type 2 diabetes mellitus HTN (hypertension) Surgical History Surgical History (Updated 01/08/25 @ 14:41 by Hayley Hamilton PA-C) History of hysterectomy Family History Family History Mother Acute myocardial infarction History of blood clots Hypertension Sibling Acute myocardial infarction Asthma Cerebrovascular accident Congestive heart failure Hypertension Son Leukemia Social History Social History (Updated 01/08/25 @ 14:47 by Hayley Hamilton PA-C) Social History: Patient lives alone at [facility]. 2 cats. Smoking status: Never smoker Second hand tobacco smoke exposure: No Alcohol intake: never Substance use: never Substance use type: does not use Do You Feel Safe in your Home?: Yes Lack of Transportation: No Lack of Food: Never True Current Housing: I Have Housing Concerned About Future Housing: No Difficulty Paying Gas/Electric Bills: No Difficulty Paying for Meds: No Currently Unemployed: No Education: High School Diploma/GED Difficulty w/ Childcare or Family Care: No Living arrangements: with family Occupation/Education: retired Gender identity (if verbalized by the patient): Female Sexual Orientation (if Verbalized by the Patient): Straight or Heterosexual Spiritual care concerns: No Meds Home Medications and Allergies Home Medications ?Medication ?Instructions ?Recorded ?Confirmed ?Type albuterol sulfate 90 mcg/actuation 2 inh inhalation Q4H PRN unknown 10/09/24 01/08/25 History breath activated powder inhaler,sensor (Proair Digihaler) fenofibric acid (choline) 135 mg 135 mg PO QHS 10/09/24 01/08/25 History capsule,delayed release metformin 500 mg tablet 250 mg PO DAILY 10/09/24 01/08/25 History triamterene 37.5 1 cap PO QAM 10/09/24 01/08/25 History mg-hydrochlorothiazide 25 mg capsule diclofenac sodium 1 % topical gel 4 g topical QID #4 grams 10/16/24 01/08/25 Rx (Voltaren Arthritis Pain) pravastatin 20 mg tablet 20 mg PO HS #30 tabs 10/16/24 01/08/25 Rx acetaminophen 325 mg tablet 650 mg PO Q4H PRN Mild Pain (1-3) 12/07/24 01/08/25 History Or Fever vit 1 tablet PO DAILY 12/07/24 01/08/25 History [id number] 500 mg-50 mg-25 mg-40 mg tablet (Bioflex) metoprolol succinate 25 mg 25 mg PO DAILY 30 days #30 tabs 12/09/24 01/08/25 Rx tablet,extended release 24 hr (Toprol XL) nifedipine 30 mg tablet,extended 60 mg (2 x 30 mg) PO DAILY 30 days 12/09/24 01/08/25 Rx release 24 hr (Procardia XL) #60 tabs pantoprazole 40 mg tablet,delayed 40 mg PO QAM PRN REFLUX 30 days 12/09/24 01/08/25 Rx release #30 tabs aspirin 81 mg tablet,delayed 81 mg PO DAILY 12/23/24 01/08/25 History release (Adult Low Dose Aspirin) multivitamin (Daily Multi-Vitamin 1 tablet PO DAILY 01/08/25 01/08/25 History tablet) Allergies Allergy/AdvReac Type Severity Reaction Status Date / Time codeine Allergy Unknown Unknown Verified 01/07/25 19:24 colesevelam Allergy Unknown Unknown Verified 01/07/25 19:24 ezetimibe Allergy Unknown Unknown Verified 01/07/25 19:24 iodine Allergy Unknown Unknown Verified 01/07/25 19:24 meperidine Allergy Unknown Unknown Verified 01/07/25 19:24 scopolamine Allergy Unknown Unknown Verified 01/07/25 19:24 ezetimibe-simastatin Allergy Unknown Unknown Uncoded 01/07/25 19:24 sulfa antibiotics Allergy Unknown Unknown Uncoded 01/07/25 19:24 Vital Signs Vital Signs - 24 hr 01/07/25 19:18 01/07/25 23:16 01/08/25 00:00 Temperature 98.2 F Pulse Rate 88 83 85 Respiratory Rate 18 14 20 Blood Pressure 142/80 H 142/58 H 139/74 Pulse Oximetry 98 96 96 Oxygen Delivery Room Air 01/08/25 01:12 01/08/25 03:00 01/08/25 05:00 Temperature Pulse Rate 82 87 83 Respiratory Rate 14 17 16 Blood Pressure 142/47 H 135/53 L 131/50 L Pulse Oximetry 100 97 98 Oxygen Delivery 01/08/25 05:46 Temperature 98.2 F Pulse Rate 82 Respiratory Rate 18 Blood Pressure 143/52 H Pulse Oximetry 97 Oxygen Delivery Exam Narrative: AF HR 71 RR 18 SpO2 94 BP 139/55 General: female in no acute respiratory distress who is nontoxic appearing, lying semi recumbent in bed. HEENT: Normocephalic. Atraumatic. Extraocular movement intact. Sclera clear and anicteric. No facial asymmetry. Neck: Neck was supple. No dominant adenopathy, thyromegaly or masses. Chest: Lungs are clear to auscultation bilaterally. No wheezes or crackles. CV: Heart was regular rate and rhythm. S1-S2. No murmurs, gallops, or rubs. Abd: Abdomen was soft. Nontender. Nondistended. Positive bowel sounds. No organomegaly or masses. Ext: No clubbing, cyanosis, or edema. 2+ DP pulses bilaterally. Neuro: Patient is alert and oriented x4. Strength is 5/5 in both upper and lower extremities. Cranial nerves 2-12 are intact. Speech is clear. Psych: Normal mood and affect. Patient is pleasant and cooperative. Skin: Warm and dry. No rashes noted. H&P: Results Labs Labs: Short CBC 01/07/25 Range/Units 23:22 WBC 14.5 H (4.5-10.0) K/mm3 Hgb 12.5 (12.0-15.0) g/dL Hct 39.5 (37.0-47.0) % Plt Count 218 (150-375) k/mm3 BMP 01/07/25 23:22 Sodium 141 Potassium 3.8 Chloride 104 Carbon Dioxide 20 L BUN 58 H D Creatinine 1.12 H Glucose 178 H Calcium 9.2 Liver Function 01/07/25 Range/Units 23:22 Total Bilirubin 0.5 (0.2-1.3) mg/dL AST 30 (14-36) U/L ALT 26 (6-35) U/L Alkaline Phosphatase 37 L (38-126) U/L Albumin 4.2 (3.5-5.1) g/dL Urine 01/08/25 Range/Units 03:30 Urine Color Yellow (Yellow) Urine Appearance Cloudy H (Clear) Urine pH 5.0 (5.0-9.0) Ur Specific [place] 1.020 (1.001-1.035) Urine Protein 2+ H (Negative) mg/dL Urine Glucose (UA) Negative (Negative) mg/dL Assessment and Plan Assessment and plan (1) Vomiting: Code(s): R11.10 - Vomiting, unspecified Status: Acute Assessment and Plan: Patient ate string beans were questionable. Approximately 1 hour later she had perfuse vomiting and was unable to keep down food or fluids. She denies hematemesis or associated diarrhea. Electrolytes unremarkable CT abdomen/pelvis: No acute abnormality. No findings to give vomiting etiology. Nausea/vomiting has resolved. Tolerating diet well. (2) Acute UTI: Code(s): N39.0 - Urinary tract infection, site not specified Status: Acute Assessment and Plan: - UA: cloudy appearance with 2+ protein, trace ketones, 3+ blood, 2+ leukocytes, 6-10 RBC, 16-20 WBC - UC obtained on 01/08/2025 - No previous micro to be reviewed - started on rocephin on 01/08 (3) Nephrolithiasis: Code(s): N20.0 - Calculus of kidney Status: Acute Assessment and Plan: Obtained per chart review, previously hospitalized in 09/2024 for right-sided hydronephrosis with obstructive ureterolithiasis and obstructive pyelonephritis on the right side. Underwent a cystourethroscopy, Right JJ stent placement, and right retrograde pyelogram with intraoperative fluoroscopic interpretation completed by Dr. Zoe Lancaster on 10/06/2024. Patient confirmed. Abdomen/pelvis CT: No acute abnormality. Bilateral ureteral stents without hydronephrosis. Probable small nonobstructing renal stones Alysha for outpatient lithotripsy in January (4) HTN (hypertension): Code(s): I10 - Essential (primary) hypertension Status: Acute Assessment and Plan: Chronic, continue home medications - nifedipine 60 mg daily - metoprolol 25 mg daily - triamterene- HCTZ daily - blood pressures well controlled, continue to monitor (5) Type 2 diabetes mellitus: Code(s): E11.9 - Type 2 diabetes mellitus without complications Status: Acute Assessment and Plan: - hypoglycemia protocol - POC blood glucose ACHS - home medication - metformin 250 mg daily on hold - correct regimen ordered - low dose TIDWM - A1C 5.9 Glucose well controlled. (6) Pulmonary nodule: Code(s): R91.1 - Solitary pulmonary nodule Status: Acute Assessment and Plan: Abdomen/pelvis CT: 5 mm left lower lobe pulmonary nodule. According to Fleischner Society criteria, for a low-risk patient, no further follow-up required. For a high-risk patient, consider 12 month follow-up CT. Quality VTE Prophylaxis VTE prophylaxis: mechanical ordered Hospitalist MIPS Advance Care Plan I have confirmed that the patient's Advanced Care Plan is present, code status is documented, or surrogate decision maker is listed in patient medical record.: Yes Medication Reconciliation I have utilized all available resources to obtain, update and review the patients current medications (includes all prescriptions, OTC, herbals, cannabis, and nutritional supplements).: Yes
[2025-01-08 07:46] LABS: Alanine Aminotransferase 21 U/L (6-35); Albumin Level 3.6 g/dL (3.5-5.1); Alkaline Phosphatase 31 U/L (38-126); Anion Gap 8 mmol/L (4-12); Aspartate Amino Transferase 27 U/L (14-36); Bilirubin,Total 0.2 mg/dL (0.2-1.3); Blood Urea Nitrogen 56 mg/dL (7-17); Calcium 8.6 mg/dL (8.4-10.2); Carbon Dioxide 25 mmol/L (22-30); Chloride 108 mmol/L (98-107); Estimated CRCL calculation 25 ml/min; Estimated Glomerular Filt Rate 45; Glucose 126 mg/dL (65-110); Potassium 3.9 mmol/L (3.4-5.0); Sodium 141 mmol/L (137-145)
[2025-01-08 07:54] LABS: Hemoglobin A1C 5.9 % (<5.7)
[2025-01-08 08:15] LABS: Glucose Point of Care 109 mg/dl (65-105)
[2025-01-08] MEDS: METOPROLOL SUCCINATE EXT REL 25 MG TABCR PO (08:33)
[2025-01-08] MEDS: NIFEdipine 30 MG TAB.ER.24 60 MG PO (08:33)
[2025-01-08] MEDS: TRIAMTERENE 37.5 MG/HCTZ 25 MG (MAXZIDE) TABLET 1 TAB PO (08:33)
[2025-01-08] MEDS: ASPIRIN 81 MG ENTERIC TABLET PO (08:34)
[2025-01-08] MEDS: PANTOPRAZOLE 40 MG TABLET PO (08:34)
[2025-01-08 11:25] LABS: Glucose Point of Care 99 mg/dl (65-105)
[2025-01-08 16:17] LABS: Glucose Point of Care 108 mg/dl (65-105)
--- NOTE | 2025-01-08 18:26 | PC.NURSE ---
asked patient daughter if she can bring in fenofibric that is non-formulary here. daughter to bring tomorrow or Saturday if patient still here
[2025-01-08] MEDS: PRAVASTATIN SODIUM 20 MG TABLET PO (20:36)
[2025-01-08 20:39] LABS: Glucose Point of Care 125 mg/dl (65-105)
[2025-01-09] VITALS: BP 141/51; PULSE 72; RESP 18; TEMP 36.7; O2SAT 97
[2025-01-09 05:43] LABS: Basophils Percent Auto 0.3 % (0.2-1.2); Eosinophils Absolute Auto 0.8 K/mm3 (0-0.3); Eosinophils Percent Auto 11.6 % (0-4.4); Hematocrit 33.1 % (37.0-47.0); Hemoglobin 10.7 g/dL (12.0-15.0); Immature Granulocyte Absolute 0.02 K/mm3 (0.00-0.031); Immature Granulocyte Percent A 0.3 % (0-0.5); Lymphocytes Absolute Auto 1.42 K/mm3 (0.9-3.2); Lymphocytes Percent Auto 20.5 % (18.3-44.2); Mean Corpuscular HGB Conc 32.3 g/dl (32-36); Mean Corpuscular Hemoglobin 31.2 pg (26-34); Mean Corpuscular Volume 96.5 fl (80-100); Mean Platelet Volume 10.2 fl (7.4-10.4); Monocytes Percent Auto 13.7 % (2.6-8.5); Neutrophils Absolute Auto 3.7 K/mm3 (1.3-6.7); Neutrophils Percent Auto 53.6 % (45.5-73.1); Platelet Count Result 202 k/mm3 (150-375); Red Blood Count 3.43 M/mm3 (4.2-5.4); Red Cell Distribution Width 15.4 % (11.5-14.5); White Blood Count 6.9 K/mm3 (4.5-10.0)
[2025-01-09 05:55] LABS: Alanine Aminotransferase 19 U/L (6-35); Albumin Level 3.3 g/dL (3.5-5.1); Alkaline Phosphatase 33 U/L (38-126); Anion Gap 6 mmol/L (4-12); Aspartate Amino Transferase 23 U/L (14-36); Bilirubin,Total 0.1 mg/dL (0.2-1.3); Blood Urea Nitrogen 29 mg/dL (7-17); Calcium 8.4 mg/dL (8.4-10.2); Carbon Dioxide 25 mmol/L (22-30); Chloride 110 mmol/L (98-107); Estimated CRCL calculation 33 ml/min; Estimated Glomerular Filt Rate > 60; Glucose 103 mg/dL (65-110); Potassium 3.4 mmol/L (3.4-5.0); Sodium 141 mmol/L (137-145)
[2025-01-09 06:12] VITALS: BP 147/79; PULSE 76; RESP 18; TEMP 36.4; O2SAT 98
[2025-01-09 08:11] LABS: Glucose Point of Care 98 mg/dl (65-105)
[2025-01-09 08:20] VITALS: PULSE 81
[2025-01-09] MEDS: ASPIRIN 81 MG ENTERIC TABLET PO (08:20)
[2025-01-09] MEDS: NIFEdipine 30 MG TAB.ER.24 60 MG PO (08:20)
[2025-01-09] MEDS: METOPROLOL SUCCINATE EXT REL 25 MG TABCR PO (08:20)
[2025-01-09] MEDS: TRIAMTERENE 37.5 MG/HCTZ 25 MG (MAXZIDE) TABLET 1 TAB PO (08:20)
--- NOTE | 2025-01-09 08:27 | P.PNIM_ITS ---
Progress Note: A&P Assessment and Plan (1) Vomiting: Code(s): R11.10 - Vomiting, unspecified Status: Acute Assessment and Plan: Patient ate string beans were questionable. Approximately 1 hour later she had perfuse vomiting and was unable to keep down food or fluids. She denies hematemesis or associated diarrhea. Electrolytes continue to be unremarkable CT abdomen/pelvis: No acute abnormality. No findings to give vomiting etiology. Nausea/vomiting has resolved. Tolerating diet well. (2) Acute UTI: Code(s): N39.0 - Urinary tract infection, site not specified Status: Acute Assessment and Plan: - UA: cloudy appearance with 2+ protein, trace ketones, 3+ blood, 2+ leukocytes, 6-10 RBC, 16-20 WBC - UC obtained on 01/08/2025: negative - No previous micro to be reviewed - started on rocephin on 01/08, discontinued Patient denies any urinary symptoms. (3) Nephrolithiasis: Code(s): N20.0 - Calculus of kidney Status: Acute Assessment and Plan: Obtained per chart review, previously hospitalized in 09/2024 for right-sided hydronephrosis with obstructive ureterolithiasis and obstructive pyelonephritis on the right side. Underwent a cystourethroscopy, Right JJ stent placement, and right retrograde pyelogram with intraoperative fluoroscopic interpretation completed by Dr. Zoe Lancaster on 10/06/2024. Patient confirmed. Abdomen/pelvis CT: No acute abnormality. Bilateral ureteral stents without hydronephrosis. Probable small nonobstructing renal stones Plan for outpatient lithotripsy in January (4) HTN (hypertension): Code(s): I10 - Essential (primary) hypertension Status: Acute Assessment and Plan: Chronic, continue home medications - nifedipine 60 mg daily - metoprolol 25 mg daily - triamterene- HCTZ daily - blood pressures reviewed and well controlled, continue to monitor (5) Type 2 diabetes mellitus: Code(s): E11.9 - Type 2 diabetes mellitus without complications Status: Acute Assessment and Plan: - hypoglycemia protocol - POC blood glucose ACHS - home medication - metformin 250 mg daily on hold - correct regimen ordered - low dose TIDWM - A1C 5.9 Glucose well controlled. (6) Pulmonary nodule: Code(s): R91.1 - Solitary pulmonary nodule Status: Acute Assessment and Plan: Abdomen/pelvis CT: 5 mm left lower lobe pulmonary nodule. According to Fleischner Society criteria, for a low-risk patient, no further follow-up required. For a high-risk patient, consider 12 month follow-up CT. Time Spent With Patient Time with patient: 25 - 35 minutes Subjective Date/time seen: 01/09/25 08:27 Interval history: 84 year old female with past medical history of hypertension, hyperlipidemia, diabetes mellitus, and gerd presents to the hospital for nausea and vomiting. Patient is pleasant sitting up comfortably in bed. She has no complaints at this time denying chest pain, shortness a breath, palpitations, nausea/vomiting, diarrhea, and abdominal pain. PT evaluated and no further therapy recommended. Planned for patient to be discharged back to facility, however family is unable to transfer. Plan for discharge tomorrow. Review of Systems Review of Systems: All systems reviewed & are unremarkable except as noted in HPI and below Exam Narrative: AF HR 76 RR 18 SpO2 98 BP 147/79 General: female in no acute respiratory distress who is nontoxic appearing, sitting up in bed HEENT: Normocephalic. Atraumatic. Extraocular movement intact. Sclera clear and anicteric. No facial asymmetry. Chest: Lungs are clear to auscultation bilaterally. CV: Heart was regular rate and rhythm. Abd: Abdomen was soft. Nontender. Nondistended. Positive bowel sounds. Ext: No clubbing, cyanosis, or edema. DP pulses bilaterally. Neuro: Patient is alert and oriented x4. Speech is clear. Objective Data Vital Signs Vital Signs: Vital Signs - 24 hr 01/08/25 08:28 01/08/25 08:33 01/08/25 13:48 Temperature 97.8 F Pulse Rate 78 80 71 Respiratory Rate 16 18 Blood Pressure 142/54 H 139/55 L Pulse Oximetry 98 94 01/09/25 00:00 01/09/25 06:12 01/09/25 08:20 Temperature 98.0 F 97.5 F L Pulse Rate 72 76 81 Respiratory Rate 18 18 Blood Pressure 141/51 H 147/79 H Pulse Oximetry 97 98 Intake/Output Intake/Output: Intake & Output 01/06/25 01/07/25 01/08/25 01/09/25 23:59 23:59 23:59 23:59 Intake Total 3737 Output Total 1250 0 Balance 2487 0 Meds/Results Medications: Active Medications Generic Name Dose Route Start Last Admin Trade Name Freq PRN Reason Stop Dose Admin Acetaminophen 650 mg 01/08/25 07:06 Acetaminophen 325 Mg Tablet PO Q4H PRN Mild Pain (1-3) or Fever Aspirin 81 mg 01/08/25 09:00 01/09/25 08:20 Aspirin 81 Mg Enteric Tablet PO 81 mg DAILY NAM Administration Dextrose 12.5 gm 01/08/25 07:21 Dextrose 50% 25 Gm/50 Ml Syringe IV PUSH PRN PRN Hypoglycemia Protocol Glucagon 1 mg 01/08/25 07:21 Glucagon For Inj 1 Mg Vial IM PRN PRN Hypoglycemia Protocol Glucose 15 gm 01/08/25 07:21 Glucose Oral Gel 15 Gm Of Glucse In 37.5 Gm Tube PO PRN PRN Hypoglycemia Protocol Ceftriaxone Sodium 1 gm in 50 mls @ 100 mls/hr 01/09/25 05:00 01/09/25 05:09 Rocephin 1 Gm/Ns 50 Ml IVPB 100 mls/hr Q24H NAM Administration Sodium Chloride 1,000 mls @ 75 mls/hr 01/08/25 05:00 01/08/25 20:37 Normal Saline Iv IV CONT 75 mls/hr .[id number] NAM Administration Dextrose 1,000 mls @ 100 mls/hr 01/08/25 07:21 Dextrose 5% 1,000 Ml IVPB PRN PRN Hypoglycemia Protocol Insulin Aspart 2 - 5 units 01/08/25 08:00 01/09/25 08:22 Insulin Aspart (*Bkc) 100 Units/Ml SUB-Q Not Given TIDWM NAM Protocol Metoprolol Succinate 25 mg 01/08/25 09:00 01/09/25 08:20 Metoprolol Succinate Ext Rel 25 Mg Tabcr PO 25 mg DAILY NAM Administration Miscellaneous Information 1 each 01/08/25 00:01 01/09/25 08:23 (Fenofibric Acid (Choline) 135 Mg Capsule,Delayed Release(Dr/Ec)) Is Nonformulary, Can Pat XX 02/07/25 00:00 Not Given CLARIFY NAM Nifedipine 60 mg 01/08/25 09:00 01/09/25 08:20 Nifedipine 30 Mg Tab.Er.24 PO 60 mg DAILY NAM Administration Non-Formulary Medication 135 mg 01/08/25 21:00 Fenofibric Acid (Choline) PO 02/07/25 20:59 QHS NAM Ondansetron HCl 4 mg 01/08/25 04:58 Ondansetron Inj 4 Mg/2 Ml Vial IV PUSH Q4H PRN Nausea Pantoprazole Sodium 40 mg 01/08/25 07:18 01/08/25 08:34 Pantoprazole 40 Mg Tablet PO 40 mg QAM PRN Administration Reflux Pravastatin Sodium 20 mg 01/08/25 21:00 01/08/25 20:36 Pravastatin Sodium 20 Mg Tablet PO 20 mg HS NAM Administration Triamterene/Hydrochlorothiazide 1 tab 01/08/25 09:00 01/09/25 08:20 Triamterene 37.5 Mg/Hctz 25 Mg (Maxzide) Tablet PO 1 tab QAM ANM Administration Radiology Results: ITS Impressions Abdomen/Pelvis CT 01/08/25 06:03 Impression: No acute abnormality. Bilateral ureteral stents without hydronephrosis. Probable small nonobstructing renal stones, as above. 5 mm left lower lobe pulmonary nodule. According to Fleischner Society criteria, for a low-risk patient, no further follow-up required. For a high-risk patient, consider 12 month follow-up CT. Labs Labs: Laboratory Results - last 24 hr 01/08/25 01/08/25 01/08/25 11:22 16:11 20:27 WBC RBC Hgb Hct MCV MCH MCHC RDW Plt Count MPV Immature Gran % (Auto) Neut % (Auto) Lymph % (Auto) [place] % (Auto) Eos % (Auto) Baso % (Auto) Lymph # (Auto) [place] # (Auto) Eos # (Auto) Baso # (Auto) Abs Immat Gran (auto) Absolute Neuts (auto) Absolute Nucleated RBC Nucleated RBC % Sodium Potassium Chloride Carbon Dioxide Anion Gap BUN Creatinine Estim Creat Clear Calc Estimated GFR Glucose POC Capillary Glucose 99 108 H 125 H Calcium Total Bilirubin AST ALT Alkaline Phosphatase Total Protein Albumin 01/09/25 01/09/25 05:17 08:06 WBC 6.9 RBC 3.43 L Hgb 10.7 L Hct 33.1 L MCV 96.5 MCH 31.2 MCHC 32.3 RDW 15.4 H Plt Count 202 MPV 10.2 Immature Gran % (Auto) 0.3 Neut % (Auto) 53.6 Lymph % (Auto) 20.5 [place] % (Auto) 13.7 H Eos % (Auto) 11.6 H Baso % (Auto) 0.3 Lymph # (Auto) 1.42 [place] # (Auto) 1.0 H Eos # (Auto) 0.8 H Baso # (Auto) 0.0 Abs Immat Gran (auto) 0.02 Absolute Neuts (auto) 3.7 Absolute Nucleated RBC 0.000 Nucleated RBC % 0.0 Sodium 141 Potassium 3.4 Chloride 110 H Carbon Dioxide 25 Anion Gap 6 BUN 29 H D Creatinine 0.84 Estim Creat Clear Calc 33 Estimated GFR > 60 Glucose 103 POC Capillary Glucose 98 Calcium 8.4 Total Bilirubin 0.1 L AST 23 ALT 19 Alkaline Phosphatase 33 L Total Protein 6.0 L Albumin 3.3 L Quality VTE Prophylaxis VTE prophylaxis: mechanical ordered
[2025-01-09 08:43] VITALS: O2SAT 98
[2025-01-09] MEDS: SODIUM CHLORIDE 0.9% IV 1,000 ML 75 ML IV CONT (09:52)
[2025-01-09 11:52] LABS: Glucose Point of Care 100 mg/dl (65-105)
[2025-01-09 16:00] VITALS: BP 126/52; PULSE 81; RESP 18; TEMP 37; O2SAT 95
[2025-01-09 17:33] LABS: Glucose Point of Care 124 mg/dl (65-105)
[2025-01-09 19:45] VITALS: BP 116/54; PULSE 73; RESP 16; TEMP 37.2; O2SAT 99
[2025-01-09] MEDS: PRAVASTATIN SODIUM 20 MG TABLET PO (20:19)
[2025-01-10 04:10] VITALS: BP 133/51; PULSE 71; RESP 17; TEMP 36.7; O2SAT 99
[2025-01-10 05:53] LABS: Hematocrit 33.8 % (37.0-47.0); Hemoglobin 10.6 g/dL (12.0-15.0); Mean Corpuscular HGB Conc 31.4 g/dl (32-36); Mean Corpuscular Hemoglobin 31.1 pg (26-34); Mean Corpuscular Volume 99.1 fl (80-100); Mean Platelet Volume 10.3 fl (7.4-10.4); Platelet Count Result 237 k/mm3 (150-375); Red Blood Count 3.41 M/mm3 (4.2-5.4); White Blood Count 7.5 K/mm3 (4.5-10.0)
[2025-01-10 06:12] LABS: Alanine Aminotransferase 21 U/L (6-35); Albumin Level 3.5 g/dL (3.5-5.1); Alkaline Phosphatase 23 U/L (38-126); Anion Gap 10 mmol/L (4-12); Aspartate Amino Transferase 32 U/L (14-36); Bilirubin,Total 0.4 mg/dL (0.2-1.3); Blood Urea Nitrogen 18 mg/dL (7-17); Calcium 8.9 mg/dL (8.4-10.2); Carbon Dioxide 20 mmol/L (22-30); Chloride 109 mmol/L (98-107); Estimated CRCL calculation 38 ml/min; Estimated Glomerular Filt Rate > 60; Glucose 119 mg/dL (65-110); Potassium 3.3 mmol/L (3.4-5.0); Sodium 139 mmol/L (137-145)
[2025-01-10 08:06] LABS: Glucose Point of Care 132 mg/dl (65-105)
[2025-01-10 08:13] VITALS: BP 157/66; PULSE 73; RESP 16; TEMP 36.6; O2SAT 100
[2025-01-10 08:15] VITALS: PULSE 78
[2025-01-10] MEDS: NIFEdipine 30 MG TAB.ER.24 60 MG PO (08:15)
[2025-01-10] MEDS: METOPROLOL SUCCINATE EXT REL 25 MG TABCR PO (08:15)
[2025-01-10 08:16] VITALS: PULSE 78; RESP 16; O2SAT 100
[2025-01-10] MEDS: TRIAMTERENE 37.5 MG/HCTZ 25 MG (MAXZIDE) TABLET 1 TAB PO (08:16)
[2025-01-10] MEDS: ASPIRIN 81 MG ENTERIC TABLET PO (08:16)
[2025-01-10] MEDS: POTASSIUM CHLORIDE 20 MEQ ER TABLET 40 MEQ PO (11:12)
[2025-01-10 11:58] LABS: Glucose Point of Care 105 mg/dl (65-105)
--- NOTE | 2025-01-10 12:41 | P.DS_ITS ---
DS: Admitting Diagnosis Discharge Date 01/10/2025 Admitting Diagnosis vomiting acute uti nephrolithiasis htn dm pulmonary nodule DS: Discharge Diagnosis Discharge Diagnosis (1) Vomiting: Code(s): R11.10 - Vomiting, unspecified Status: Acute (2) Acute UTI: Code(s): N39.0 - Urinary tract infection, site not specified Status: Acute (3) Nephrolithiasis: Code(s): N20.0 - Calculus of kidney Status: Acute (4) HTN (hypertension): Code(s): I10 - Essential (primary) hypertension Status: Acute (5) Type 2 diabetes mellitus: Code(s): E11.9 - Type 2 diabetes mellitus without complications Status: Acute (6) Pulmonary nodule: Code(s): R91.1 - Solitary pulmonary nodule Status: Acute DS: Summary Hospital Course Reason for hospitalization: vomiting acute uti nephrolithiasis htn dm pulmonary nodule Hospital Course: 84 year old female with past medical history of hypertension, hyperlipidemia, diabetes mellitus, and gerd presents to the hospital for nausea and vomiting. Per patient she had chicken with gravy and string beans for lunch on 01/08 after jainism. She states the string beans were questionable however she ate them anyway. Approximately 1 hour later she had perfuse vomiting and was unable to keep down food or fluids. She denies hematemesis or associated diarrhea. Vital stable on admission. Not meeting sepsis criteria. Electrolytes WNL. UA concerning for infection, started on antibiotics. Urine culture negative and antibiotics discontinued. CT abdomen/pelvis showing no acute abnormality that would cause vomiting, but bilateral ureteral stents without hydronephrosis and probable small nonobstructing renal stones.Per chart review, previously hospitalized in 09/2024 for right-sided hydronephrosis with obstructive ureterolithiasis and obstructive pyelonephritis on the right side. Underwent a cystourethroscopy, Right JJ stent placement, and right retrograde pyelogram with intraoperative fluoroscopic interpretation completed by Dr. Zoe Lancaster on 10/06/2024. Patient has an appointment in January for further treatment of the stents and stones. Patient had no nausea/vomiting or abdominal pain throughout admission. She continued to tolerate a diet well. Patient has no complaints at time of discharge denying chest pain, shortness a breath, palpitations, nausea/vomiting, and abdominal pain. Patient discharged back to her independent living in a stable condition. She has a follow-up with her primary care provider in 1 week and keep her scheduled appointment with Urology in January. Status at Discharge Functional status at discharge: uses cane/walker Time Spent with Patient Time attestation: Total time spent providing and/or coordinating discharge services: Time spent: Greater than 30 minutes Exam Narrative: AF HR 78 RR 16 SpO2 100 BP 157/66 General: female in no acute respiratory distress who is nontoxic appearing, sitting up in bed HEENT: Normocephalic. Atraumatic. Extraocular movement intact. Sclera clear and anicteric. No facial asymmetry. Chest: Lungs are clear to auscultation bilaterally. CV: Heart was regular rate and rhythm. Abd: Abdomen was soft. Nontender. Nondistended. Positive bowel sounds. Ext: No clubbing, cyanosis, or edema. DP pulses bilaterally. Neuro: Patient is alert and oriented x4. Speech is clear. DS: Data Data Completed and Pending Completed studies during hospitalization: abdomen pelvis ct Labs on day of discharge: Labs from last 24 hours 01/10/25 01/10/25 01/10/25 11:42 07:55 05:35 WBC 7.5 RBC 3.41 L Hgb 10.6 L Hct 33.8 L MCV 99.1 MCH 31.1 MCHC 31.4 L RDW 15.0 H Plt Count 237 MPV 10.3 Sodium 139 Potassium 3.3 L Chloride 109 H Carbon Dioxide 20 L Anion Gap 10 BUN 18 H D Creatinine 0.72 Estim Creat Clear Calc 38 Estimated GFR > 60 Glucose 119 H POC Capillary Glucose 105 132 H Calcium 8.9 Total Bilirubin 0.4 AST 32 ALT 21 Alkaline Phosphatase 23 L Total Protein 6.0 L Albumin 3.5 01/09/25 17:03 WBC RBC Hgb Hct MCV MCH MCHC RDW Plt Count MPV Sodium Potassium Chloride Carbon Dioxide Anion Gap BUN Creatinine Estim Creat Clear Calc Estimated GFR Glucose POC Capillary Glucose 124 H Calcium Total Bilirubin AST ALT Alkaline Phosphatase Total Protein Albumin Discharge Plan Discharge Attending physician on discharge: Dilip Marcus Discharging Clinician: Hayley Hamilton Anticipated Discharge Date/Time: 01/10/25 11:07 Patient Disposition: Home, Self-Care Activity: as tolerated Diet: as tolerated and diabetic Discharge Instructions: Discharge disposition: Patient admitted to the hospital for nausea/vomiting Nausea/vomiting resolved during admission Patient tolerating diet well Eat well balanced meals and stay hydrated Keep active to remain strong Urine sample originally concerning for acute urinary tract infection however urine culture was negative CT abdomen pelvis showing nonobstructed renal stones Patient is to keep scheduled appointment for lithotripsy in January Avoid use of diapers or pads Good cara Care every 2 hours Trend urine output Monitor blood pressures Take caution while standing, rising, or moving Change positions slowly taking a break between each position change If you standing feel dizzy sit back down and take a break Patient was noted to have a 5 mm left lower lobe pulmonary nodule Follow-up with primary care provider in the outpatient setting Encouraged to continue with yearly vaccinations Return to the emergency department if he developed sudden shortness of breath, chest pain, nausea, vomiting, upset stomach or intractable diarrhea Return to the emergency department if you develop fever greater than 101.5 Follow-up with the primary care physician within 1-2 weeks Thank you for [facility] for your healthcare needs Patient Language: Kinyarwanda Stand Alone Forms: General Discharge Information Follow-up/Referrals: Yefri Torres MD [Primary Care Provider] - 1 Week Discharge Medications: Continued aspirin [Adult Low Dose Aspirin] 81 mg tablet,delayed release (DR/EC) 81 mg PO DAILY multivitamin [Daily Multi-Vitamin] Tablet 1 tablet PO DAILY Bioflex [id number] mg tablet 1 tablet PO DAILY acetaminophen 325 mg Tablet 650 mg PO Q4H PRN (Reason: Mild Pain (1-3) Or Fever) nifedipine [Procardia XL] 30 mg Tablet Extended Release 24hr 60 mg PO DAILY 30 Days Qty: 60 0RF pantoprazole 40 mg Tablet,Delayed Release (Dr/Ec) 40 mg PO QAM PRN (Reason: REFLUX) 30 Days Qty: 30 0RF metoprolol succinate [Toprol XL] 25 mg Tablet Extended Release 24 Hr 25 mg PO DAILY 30 Days Qty: 30 0RF fenofibric acid (choline) 135 mg capsule,delayed release(DR/EC) 135 mg PO QHS triamterene-hydrochlorothiazid 37.5-25 mg capsule 1 cap PO QAM metformin 500 mg tablet 250 mg PO DAILY Proair Digihaler 90 mcg/actuation aero powdr breath act w/sensor 2 inh inhalation Q4H PRN (Reason: unknown) pravastatin 20 mg tablet 20 mg PO HS Qty: 30 0RF diclofenac sodium [Voltaren Arthritis Pain] 1 % gel 4 g topical QID Qty: 4 0RF Rx Instructions: apply to single knee, ankle, foot; for foot includes sole/toes/top of foot Date of admission: 01/09/25 09:49 Primary Care Provider: Yefri Torres Admitting Provider: Al Veronica Attending physician on admission: Hayley Hamilton Condition: Stable Hospitalist MIPS Heart Failure (Exclusion) Patient has history of Heart Transplant or Left Ventricular Assistive Device?: No IF YES, STOP HERE Heart Failure (Qualifier) Patient has current or prior documentation of LVEF less than or equal to 40%, or mod/servere depressed LVSF?: No IF NO, STOP HERE
== END 2025-01-10 13:42 | disposition home or self-care (01) | DRG 392 ==
LOC: ANHED 01-08 05:00 → ANH2MED 01-08 05:20
PROVIDERS: Admitting Provider Internal Medicine; Emergency Provider Emergency Medicine; PCP Family Medicine; Visit Provider Student in an Organized Health Care Education/Training Program
DX: R11.2 Nausea with vomiting, unspecified (principal); N20.0 Calculus of kidney; I10 Essential (primary) hypertension; E78.5 Hyperlipidemia, unspecified; E11.9 Type 2 diabetes mellitus without complications; K21.9 Gastro-esophageal reflux disease without esophagitis; Z79.82 Long term (current) use of aspirin
CPT/HCPCS: 36415; 74176; 80053; 81001; 82948; 83036; 85025; 85027; 87086; 96361; 96365; 96375; 96376; 97161; 97165; 99285; A9270; G0378; J0696; J2405; J7030